=== PATIENT | female | born 1935 | race Caucasian/White ===

== ENCOUNTER → 2020-08-25 09:06 | Outpatient (BNVA) | payer MEDICARE, OTHER, SELFPAY | PROVIDERS: Family Provider Internal Medicine; PCP Internal Medicine; Referring Provider Internal Medicine; Visit Provider Orthopaedic Surgery | DX: M25.562 Pain in left knee (principal); M25.561 Pain in right knee | CPT/HCPCS: 73560; 73565 ==

== ENCOUNTER 2021-08-18 03:08 | Observation (INO) | payer MEDICARE, OTHER, SELFPAY ==
[2021-08-18] VITALS (38 sets, daily range): BP systolic 103–204; BP diastolic 57–150; PULSE 57–120; RESP 14–35; TEMP 36.2–36.6; O2SAT 90–99; BMI 27.8
--- NOTE | 2021-08-18 03:19 | ED_ITS ---
HPI - Epistaxis General: Chief complaint: Epistaxis Stated complaint: Nose Bleed Time Seen by Provider: 08/18/21 03:09 Source: patient Mode of arrival: ambulatory Limitations: no limitations History of Present Illness: 86-year-old female has a history of high blood pressure also is on Eliquis due to A. fib. States she woke up an hour half ago with a nosebleed from her right nare states she has not been able to get it to stop bleeding. She is hypertensive here she does have active bleeding from the right nare states she has never had issues with nosebleeds in the past. Denies any worsening improving factors. Associated symptoms: Deny fever(s), headache(s) or vomiting Review of Systems Const: Denies: fever(s), chills, body aches or change in appetite Eyes: Denies: blurry vision or eye discomfort ENMT: Reports: epistaxis Card: Denies: chest pain Resp: Denies: dyspnea GI: Denies: abdominal pain, nausea, vomiting or diarrhea : Denies: dysuria Musc: Denies: neck pain or back pain Skin/Breast: Denies: rash Neuro: Denies: headache(s) Psych: Denies: depression Tristan/Lymph: Denies: easy bruising All/Imm: Denies: urticaria PFSH ED PFSH: Medical History Atrial fibrillation CHF (congestive heart failure) History of stroke HTN (hypertension) Hypercholesterolemia RLS (restless legs syndrome) Tricuspid valve regurgitation Surgical History H/O section S/P appendectomy S/P cholecystectomy S/P knee replacement 2016 S/P wrist surgery Family History Father Stroke Hypertension Heart disease Mother Sarcoidosis Hypertension Sister Hypertension Social History Smoking and tobacco status: never smoked History of recent travel: No Physical Exam Const: COMMON NORMALS: no acute distress, patient oriented x3 and healthy appearing HENMT: COMMON NORMALS: normocephalic and atraumatic HEAD & SCALP: normocephalic and atraumatic OTHER: Active bleeding from right nare Eye: COMMON NORMALS: Equal, round and reactive pupils present and EOMs intact bilaterally PUPIL: Yes Equal, round and reactive pupils present Neck/C-Spine: COMMON NORMALS: full ROM and supple Chest: COMMONS NORMALS: normal inspection of the chest and normal palpation of entire chest wall Resp: COMMON NORMALS: normal respiratory effort, No retractions, No use of accessory muscles and clear to auscultation bilaterally AUSCULTATION: clear to auscultation bilaterally Cardio: COMMON NORMALS: regular rate, regular rhythm and No murmurs present (Cardio) RATE: regular rate RHYTHM: regular rhythm GI: COMMON NORMALS: Normal to inspection, nondistended, normoactive bowel sounds present, Soft to palpation, non-tender and no masses PALPATION: Yes Soft to palpation Extremity: COMMON NORMALS: normal to inspection and full ROM Neuro: COMMON NORMALS: patient oriented x3, moves all extremities and no focal motor deficits Psych: COMMON NORMALS: mental status grossly normal, Normal thought process present and cooperative THOUGHT PROCESS: Normal thought process present Skin: COMMON NORMALS: no rashes or lesions noted and no wounds GENERAL SKIN EXAM: no rashes or lesions noted Course Vital Signs: Vital signs: Vital Signs Temperature 97.7 F 08/18/21 03:15 Pulse Rate 94 08/18/21 03:59 Respiratory Rate 16 08/18/21 03:59 Blood Pressure 116/76 08/18/21 03:59 Pulse Oximetry 93 08/18/21 03:59 MDM - Epistaxis Medical Decision Making Patient presents here with nosebleed. I had her blow out the clot placed Afrin and then a nose clamp and her bleeding is subsided is able to remove the clamp and observed here for another 15 minutes she still has no bleeding she is well- appearing here blood pressure is improved she is stable for discharge did give her instructions how to stop the bleed if it stopped starts again she is return if she has excess bleeding we will get her follow-up with ear nose and throat as well. Lab Data : 08/18/21 03:20 Laboratory Results WBC 4.2 10^3/uL (4.0-10.0) 08/18/21 03:20 RBC 4.47 10^6/uL (4.1-5.3) 08/18/21 03:20 Hgb 13.7 g/dL (11.5-15.3) 08/18/21 03:20 Hct 42.4 % (37.0-47.0) 08/18/21 03:20 MCV 94.9 fl (81-99) 08/18/21 03:20 MCH 30.6 pg (28.0-34.0) 08/18/21 03:20 MCHC 32.3 g/dL (30.0-36.0) 08/18/21 03:20 RDW 13.0 % (12.1-15.1) 08/18/21 03:20 Plt Count 114 10^3/cmm (130-400) L 08/18/21 03:20 MPV 10.9 fL (7.4-10.4) H 08/18/21 03:20 Neut % (Auto) 69.4 % 08/18/21 03:20 Lymph % (Auto) 18.2 % 08/18/21 03:20 [place] % (Auto) 8.6 % 08/18/21 03:20 Eos % (Auto) 3.1 % 08/18/21 03:20 Baso % (Auto) 0.5 % 08/18/21 03:20 Neut # (Auto) 2.90 10^3/uL (1.8-7.7) 08/18/21 03:20 Lymph # (Auto) 0.8 10^3/uL (0.8-4.8) 08/18/21 03:20 [place] # (Auto) 0.4 10^3/uL (0.2-0.9) 08/18/21 03:20 Eos # (Auto) 0.1 10^3/uL (0.0-0.8) 08/18/21 03:20 Baso # (Auto) 0.0 10^3/uL (0.0-0.1) 08/18/21 03:20 Nucleated RBC % (auto) 0 % 08/18/21 03:20 Nucleated RBCs # 0.0 /100WBC 08/18/21 03:20 PT 16.30 SECONDS (12.1-14.9) H 08/18/21 03:20 INR 1.28 (0.8-1.2) H 08/18/21 03:20 Discharge Plan Discharge Patient Disposition: Home Clinical Impression: Epistaxis Condition: Stable Prescriptions: No Action acetaminophen 500 mg capsule 500 mg PO Q6H PRN0RF alprazolam 0.25 mg tablet 0.25 mg PO DAILY 0RF aspirin [Adult Low Dose Aspirin] 81 mg tablet,delayed release (DR/EC) 81 mg PO DAILY 0RF ropinirole 0.5 mg tablet 0.5 mg PO TID 0RF furosemide 40 mg tablet 80 mg PO DAILY 0RF potassium chloride 20 mEq tablet extended release 20 meq PO BID 0RF metoprolol tartrate 50 mg tablet 50 mg PO BID 0RF imiquimod 5 % cream in packet 4 mm topical ONCE Qty: 24 1RF Rx Instructions: Apply thin film to right neck and left arm once daily M-F (off weekends) for 6 weeks glucosamine-chondroitin 900 mg tablet PO 0RF albuterol sulfate [ProAir HFA] 90 mcg/actuation HFA aerosol inhaler 2 puff inhalation Q6H PRN (Reason: shortness of breath or wheezing) Qty: 8.5 3RF Eliquis 2.5 mg tablet 2.5 mg PO BID 90 Days Qty: 180 4RF atorvastatin 10 mg tablet 10 mg PO DAILY 90 Days Qty: 90 3RF losartan 25 mg tablet 25 mg PO DAILY 90 Days Qty: 90 3RF Discharge Orders: Discharge ED (Routine); Ordered 08/18/21 Ordered By: Pennie Zayas Referrals: Hunter Calderon MD [Physician] - 1-3 days Reji Bradley DO [Primary Care Provider] - Discharge Diet: Advance as tolerated Discharge Activity: Resume usual activity Patient Instructions: Nosebleed (ED) Coding Level of Care Code ED Machine Clipper for Chg Fwd Exam Comprehensive
[2021-08-18] MEDS: labetalol 5 mg/mL SDV 20mL 10 MG IVP ×3 (03:21→05:11)
[2021-08-18] MEDS: oxymetazoline 0.05% Nasal Spray 15 mL 2 SPRAY NOSTRIL-B (03:23)
[2021-08-18 03:33] LABS: Basophils % 0.5 %; Eosinophils # 0.1 10^3/uL (0.0-0.8); Eosinophils % 3.1 %; Hematocrit 42.4 % (37.0-47.0); Hemoglobin 13.7 g/dL (11.5-15.3); Lymphocytes # 0.8 10^3/uL (0.8-4.8); Lymphocytes % 18.2 %; Mean Corpuscular HGB Conc 32.3 g/dL (30.0-36.0); Mean Corpuscular Hemoglobin 30.6 pg (28.0-34.0); Mean Corpuscular Volume 94.9 fl (81-99); Mean Platelet Volume 10.9 fL (7.4-10.4); Monocytes # 0.4 10^3/uL (0.2-0.9); Monocytes % 8.6 %; Neutrophils % 69.4 %; Nucleated Red Blood Cells % 0 %; Platelet Count 114 10^3/cmm (130-400); Red Blood Count 4.47 10^6/uL (4.1-5.3); White Blood Count 4.2 10^3/uL (4.0-10.0)
[2021-08-18 03:41] LABS: INR 1.28 (0.8-1.2)
--- NOTE | 2021-08-18 05:17 | ECG_ITS ---
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 Measurements Intervals [place] Rate: 129 P: HI: QRS: 81 QRSD: 97 T: 89 QT: 311 QTc: 456 Interpretive Statements ATRIAL FIBRILLATION WITH RAPID VENTRICULAR RESPONSE ST DEPRESSION, CONSIDER SUBENDOCARDIAL INJURY [0.1+ mV ST DEPRESSION] Compared to ECG 11/14/2018 06:10:22 ST (T wave) deviation now present Sinus rhythm no longer present Ventricular premature complex(es) no longer present Left ventricular hypertrophy no longer present Electronically Signed On 08-18-2021 17:43:44 POWER AND RECOVERY SUPERINTENDENT by Camille Bustos M.D. [id number]
[2021-08-18] MEDS: LORazepam 2 mg/mL INJ 1 mL 0.5 MG IVP (05:25)
[2021-08-18] MEDS: ropinirole 0.25 mg Tablet 0.5 MG PO ×3 (05:52→15:12)
[2021-08-18 06:10] LABS: Alanine Aminotransferase 10 U/L (0-33); Albumin Level 3.9 g/dL (3.5-5.2); Alkaline Phosphatase 140 IU/L (35-105); Anion Gap 14.3 (5-19); Aspartate Amino Transferase 15 U/L (0-32); Blood Urea Nitrogen 23 mg/dL (8-23); Carbon Dioxide 25 mmol/L (22-29); Chloride 105 mmol/L (98-107); Glucose 122 mg/dL (65-115); Osmolality Calculated 297 mOsm/kg (285-295); Potassium 3.3 mmol/L (3.5-5.1); Sodium 141 mmol/L (136-145); Total Bilirubin 0.8 mg/dL (0.15-1.2); Total Protein 6.9 g/dL (6.6-8.7)
--- NOTE | 2021-08-18 07:20 | PC.NURSE ---
HR: 71 o2: 92 RR: 13 BP: 161/116 TEMP:96.3
--- NOTE | 2021-08-18 07:46 | PC.NURSE ---
pt has underwear, night gown, byron. all other belongings sent home with patients daughter ari grossman
--- NOTE | 2021-08-18 08:21 | PM.HP ---
Providers/Chief Complaint Admitting Physician: Radha Gee MD Primary Care Provider: Reji Bradley DO Chief Complaint: Nose Bleed History of Present Illness Tereza Cruz is a 86 year old female who presented to the hospital with a nosebleed, occurring early this morning. She states she has not had any significant nosebleeds lately. She is on both Eliquis and aspirin. After coming into the emergency department, and receiving packing heart rate elevated consistent with atrial fibrillation with rapid ventricular rate. She has had atrial fibrillation in the past and I cannot delineate whether she has chronic atrial fibrillation or paroxysmal atrial fibrillation. Either way she was placed on Cardizem drip, under observation category in the [facility]. A Rhino Rocket was placed in her right nares after Afrin and pressure failed in the emergency department to control bleeding. ENT has been consulted. She reports that through this episode she never had any chest discomfort, shortness of breath. She has had some sinus pressure recently on the right. Review of Systems General: Reports: 10 or more systems reviewed and unremarkable except in HPI and below Const: Denies: fever(s) or chills Eyes: Denies: change in vision ENMT: Reports: epistaxis; Denies: throat pain Card: Denies: chest pain Resp: Denies: dyspnea GI: Denies: abdominal pain : Denies: flank pain Musc: Denies: neck pain Skin/Breast: Denies: rash Neuro: Denies: headache(s) Psych: Denies: anxiety Endo: Denies: polyuria Tristan/Lymph: Denies: easy bruising All/Imm: Reports: seasonal rhinorrhea Medications/Allergies Home Medications Medication Instructions Recorded Confirmed Last Taken Type acetaminophen 500 mg capsule 500 mg PO Q6H PRN 08/09/19 08/06/21 Unknown History alprazolam 0.25 mg tablet 0.25 mg PO DAILY 08/09/19 08/06/21 Unknown History aspirin 81 mg tablet,delayed 81 mg PO DAILY 08/09/19 08/06/21 Unknown History release (Adult Low Dose Aspirin) apixaban 2.5 mg tablet (Eliquis) 2.5 mg PO BID 90 Days #180 tab 09/25/20 08/06/21 Unknown Rx atorvastatin 10 mg tablet 10 mg PO DAILY 90 Days #90 tab 10/09/20 08/06/21 Unknown Rx losartan 25 mg tablet 25 mg PO DAILY 90 Days #90 tab 10/21/20 08/06/21 Unknown Rx albuterol sulfate 90 mcg/actuation 2 puff INHALATION Q6H PRN #8.5 g 02/05/21 08/06/21 Unknown Rx aerosol inhaler (ProAir HFA) antiarthritic combination no.2 900 mg PO 02/05/21 08/06/21 Unknown History mg tablet (glucosamine-chondroitin) ropinirole 0.5 mg tablet 0.5 mg PO TID tab 02/05/21 08/06/21 Unknown History imiquimod 5 % topical cream packet 4 mm TOPICAL ONCE #24 ea 07/07/21 08/06/21 Unknown Rx furosemide 40 mg tablet 80 mg PO DAILY tab 08/06/21 08/06/21 Unknown History metoprolol tartrate 50 mg tablet 50 mg PO BID tab 08/06/21 08/06/21 Unknown History potassium chloride 20 mEq 20 meq PO BID tab 08/06/21 08/06/21 Unknown History tablet,extended release cephalexin 500 mg capsule 500 mg PO TID 7 Days #21 cap 08/18/21 Unknown Rx Allergies Allergy/AdvReac Type Severity Reaction Status Date / Time codeine Allergy Unknown Unknown Verified 07/14/21 08:02 hydrocodone Allergy Unknown Unknown Verified 07/14/21 08:02 PFSH Acute PFSH: Medical History Atrial fibrillation CHF (congestive heart failure) History of stroke HTN (hypertension) Hypercholesterolemia RLS (restless legs syndrome) Tricuspid valve regurgitation Surgical History H/O section S/P appendectomy S/P cholecystectomy S/P knee replacement 2016 S/P wrist surgery Family History Father Stroke Hypertension Heart disease Mother Sarcoidosis Hypertension Sister Hypertension Social History Smoking and tobacco status: never smoked History of recent travel: No Vitals/I&O/Wt Last Vital Signs Temp 97.2 F L 08/18/21 07:22 Pulse 67 08/18/21 07:45 Resp 19 H 08/18/21 07:45 BP 151/80 08/18/21 07:45 Pulse Ox 97 08/18/21 07:45 08/17/21 08/18/21 08/18/21 22:59 06:59 14:59 Intake Total 12.417 / 12.417 Balance 12.417 / 12.417 Weight last 48 hrs Weight 68.946 kg Physical Exam Narrative: General exam is a white female, no apparent distress, with Rhino Rocket in right nares. HEENT: Atraumatic normocephalic. Pupils equally round. Oropharynx clear. Neck is supple no lymphadenopathy or thyromegaly Cardiovascular irregular, irregular without murmur Lungs clear no wheezing or crackles Abdomen is soft nontender positive bowel sounds. No obvious organomegaly exam is deferred Extremities no cyanosis clubbing or edema, cap refill brisk Skin no rash Neuro no focal deficits. Data : 08/18/21 03:20 08/18/21 05:47 Other Labs: EKG on admission demonstrated atrial fibrillation with rapid ventricular rate, 129, with nonspecific ST-T wave changes. INR 1.28 LFTs normal with exception of alk phos of 140 A&P Assessment and plan (1) Epistaxis: Chronically on Eliquis and aspirin. Rhino Rocket placed in the emergency department, right nares ENT consult pending Placed on Augmentin for prophylaxis Hold ASA Status: Acute (2) Atrial fibrillation with rapid ventricular response: On Metoprolol chronically. Currently on Cardizem drip. Wean off as tolerated. Resume Eliquis Status: Acute (3) History of stroke: Resume Eliquis considering patient's history of CVA related to AFib requiring TPA. Status: Acute (4) CHF (congestive heart failure): Complensated currently. Likely restart Lasix back tomorrow. Status: Acute Qualifiers: Heart failure type: diastolic Heart failure chronicity: chronic Qualified Code(s): I50.32 - Chronic diastolic (congestive) heart failure Plan Multiple other medical multiple other medical problems as outlined in past medical history Full code Eliquis will suffice for DVT prophylaxis Attestations Medical Necessity Statement*: Will need less than 2 will need less than 2 midnight stay for evaluation of atrial fibrillation with rapid ventricular rate and epistaxis. Coding Level of Care Code Acute Purchasing Manager for Carlitos Michaud Diagnoses Epistaxis R04.0 Atrial fibrillation with rapid ventricular response I48.91 History of stroke Z86.73 CHF (congestive heart failure) I50.32 Heart failure type: diastolic Heart failure chronicity: chronic
[2021-08-18 08:54] LABS: Magnesium 2.1 mg/dL (1.7-2.3); Thyroid Stimulating Hormone 4.68 uIU/mL (0.27-4.20)
[2021-08-18] MEDS: losartan 50 mg Tablet 25 MG PO ×2 (09:14→16:57)
[2021-08-18] MEDS: pantoprazole DR 40 mg Tablet PO (09:15)
[2021-08-18] MEDS: potassium chloride ER 20 mEq Tablet 40 MEQ PO (09:15)
[2021-08-18] MEDS: amoxicillin-clav 875-125 mg Tablet 1 TAB PO ×2 (09:16→17:00)
[2021-08-18] MEDS: apixaban 5 mg Tablet 2.5 MG PO ×2 (09:16→20:40)
[2021-08-18] MEDS: metoprolol tartrate 50 mg Tablet PO ×2 (09:16→20:40)
--- NOTE | 2021-08-18 09:21 | DCPLANNER ---
Addendum entered by Renetta Bland 08/27/21 14:50: Patient had a follow up appointment scheduled with ENT on 08.24.21 - patient did attend appointment. Addendum entered by Renetta Bland 08/20/21 19:45: Patient has a follow up appointment scheduled for Tuesday, August 18, 2021 at 4:[address] Calderon at [facility] ENT clinic. The ENT clinic will call patient with appointment information. Original Note: financial analysis manager had message to schedule a follow up appointment with ENT. financial analysis manager emailed patients information to Ann-Marie Lux and Kristin at [facility] General Surgery / ENT clinic. Patients information will be printed and reviewed.
[2021-08-18] MEDS: acetaminophen 325 mg Tablet 650 MG PO ×2 (10:32→16:32)
--- NOTE | 2021-08-18 16:50 | PM.CONSULT ---
Providers/Reason For Consult Consulting Physician/Specialty*: Hunter Calderon MD/otolaryngology Reason for Consult*: Right recurrent epistaxis Attending Physician: Rodney Cuevas MD Primary Care Provider: Reji Bradley DO History of Present Illness History of Present Illness Tereza Cruz is a 86 year old female who has required packing of her right nasal cavity in the emergency room due to persistent epistaxis early this morning. The patient is on Eliquis and this is caused her to have persistent bleeding once she started up. The patient is doing fine in the hospital being treated for her hypertension and I was asked to see the patient in consultation from an ENT standpoint. No further bleeding since the packing was placed. It is a right-sided Rhino Rocket. Review of Systems Narrative: Patient is currently complaining of pressure in the right side of her head as expected. With the Rhino Rocket in place that in itself will cause pressure and blocking the sinus ostia from aerating and draining secretions will also add to the fullness and pressure on the right side. It is likely to affect all of the sinuses. Patient does not have any active bleeding currently. Breathing easily through the left side of the nose as well as the mouth. Medications/Allergies Home Medications Medication Instructions Recorded Confirmed Last Taken Type alprazolam 0.25 mg tablet 0.25 mg PO QPM 08/09/19 08/18/21 Unknown History aspirin 81 mg tablet,delayed 81 mg PO BEDTIME 08/09/19 08/18/21 Unknown History release (Adult Low Dose Aspirin) apixaban 2.5 mg tablet (Eliquis) 2.5 mg PO BID 90 Days #180 tab 09/25/20 08/18/21 Unknown Rx atorvastatin 10 mg tablet 10 mg PO DAILY 90 Days #90 tab 10/09/20 08/18/21 Unknown Rx losartan 25 mg tablet 25 mg PO DAILY 90 Days #90 tab 10/21/20 08/18/21 Unknown Rx albuterol sulfate 90 mcg/actuation 2 puff INHALATION Q6H PRN #8.5 g 02/05/21 08/18/21 Unknown Rx aerosol inhaler (ProAir HFA) ropinirole 0.5 mg tablet 0.5 mg PO TID tab 02/05/21 08/18/21 Unknown History imiquimod 5 % topical cream packet 4 mm TOPICAL ONCE #24 ea 07/07/21 08/18/21 Unknown Rx furosemide 40 mg tablet 40 mg PO BID tab 08/06/21 08/18/21 Unknown History metoprolol tartrate 50 mg tablet See Rx Instructions .ROUTE 08/06/21 08/18/21 Unknown History .COMPLEX tab potassium chloride 20 mEq 20 meq PO BID tab 08/06/21 08/18/21 Unknown History tablet,extended release [id number] tablet 1 - 2 tab PO DAILY PRN 08/18/21 08/18/21 Unknown History Allergies Allergy/AdvReac Type Severity Reaction Status Date / Time codeine Allergy Unknown Unknown Verified 08/18/21 09:34 hydrocodone Allergy Unknown Unknown Verified 08/18/21 09:34 Current Medications Generic Name Dose Route Start Last Admin Trade Name Freq PRN Reason Stop Dose Admin Acetaminophen 650 mg 08/18/21 08:19 08/18/21 16:32 Acetaminophen 325 Mg Tablet PO 650 mg Q6H PRN Administration Mild/Mod Pain Or Temp >/= 101 Amoxicillin/Clavulanate Potassium 1 tab 08/18/21 09:00 08/18/21 09:16 Amoxicillin-Clav 875-125 Mg Tablet PO 1 tab BID COLBY Administration Protocol Apixaban 2.5 mg 08/18/21 09:00 08/18/21 09:16 Apixaban 5 Mg Tablet PO 2.5 mg BID@0900,2100 COLBY Administration Diltiazem HCl 125 mg/ Sodium 125 mls @ 10 mls/hr 08/18/21 05:30 08/18/21 10:30 Chloride IV Infused .[id number] COLBY Infusion 10 MG/HR Metoprolol Tartrate 50 mg 08/18/21 09:00 08/18/21 09:16 Metoprolol Tartrate 50 Mg Tablet PO 50 mg BID@0900,2100 COLBY Administration Pantoprazole Sodium 40 mg 08/18/21 09:00 08/18/21 09:[address] 40 Mg Tablet PO 40 mg DAILY COLBY Administration Ropinirole HCl 0.5 mg 08/18/21 09:00 08/18/21 15:12 Ropinirole 0.25 Mg Tablet PO 0.5 mg TID COLBY Administration PFSH Acute PFSH: Medical History Atrial fibrillation CHF (congestive heart failure) History of stroke HTN (hypertension) Hypercholesterolemia RLS (restless legs syndrome) Tricuspid valve regurgitation Surgical History H/O section S/P appendectomy S/P cholecystectomy S/P knee replacement 2016 S/P wrist surgery Family History Father Stroke Hypertension Heart disease Mother Sarcoidosis Hypertension Sister Hypertension Social History Smoking and tobacco status: never smoked History of recent travel: No Vitals/I&O/Wt Last Vital Signs Temp 97.2 F L 08/18/21 07:22 Pulse 69 08/18/21 15:16 Resp 14 08/18/21 15:16 BP 153/79 08/18/21 15:16 Pulse Ox 96 08/18/21 15:16 08/18/21 08/18/21 08/18/21 06:59 14:59 22:59 Intake Total 12.417 / 12.417 56.833 / 56.833 Balance 12.417 / 12.417 56.833 / 56.833 Weight last 48 hrs Weight 152 lb Physical Exam Narrative: The patient's nose was packed on the right side with a Rhino Rocket. Some old blood present on the anterior aspect. There is no bleeding from the nose or down the back of the throat. Patient talking normally. Breathing easily. Having typical pressure in the right side of the face caused by the packing. Patient's current hemoglobin is 13.7 with hematocrit of 42.4 and white count of 4200 all which is within normal limits. Platelets low at 114,000 as expected after the recurrent epistaxis. Data : 08/18/21 03:20 08/18/21 05:47 A&P Assessment and plan (1) Epistaxis: Assessment: Epistaxis from the right nasal cavity most likely the septum as reported from the emergency room. No further bleeding since the Rhino Rocket is in place. Pressure as expected from the packing causing fullness and pressure sensation in the sinuses on the right side. Patient is continued on aspirin and Eliquis due to her other medical problems including her atrial fibrillation. Status: Acute (2) Atrial fibrillation with rapid ventricular response: Status: Acute Plan Plan: My recommendation is for this patient to see me in the office as an outpatient on Tuesday, 24 August. At that point we will remove the Rhino Rocket and take care of any other problems in regards to her nose or bleeding that needs to be done. The patient should be maintained on prophylactic antibiotics through that period of time to prevent toxic shock syndrome or sinus infection. Coding Level of Care Code New Pt Acute Recreation Leader for Carlitos Michaud Patient Type New History Problem Focused Exam Problem Focused Medical Decision Making Straight Forward Diagnoses Epistaxis R04.0 Atrial fibrillation with rapid ventricular response I48.91
--- NOTE | 2021-08-18 16:51 | PC.NURSE ---
dr tobias notified of pts elevated bp. order recieved for losartan.
[2021-08-18] MEDS: hyDRALAzine 20 mg/mL INJ 1 mL 10 MG IVP ×2 (18:45→22:04)
[2021-08-18] MEDS: atorvastatin 40 mg Tablet 20 MG PO (20:40)
[2021-08-18] MEDS: ropinirole 1 mg Tablet 0.5 MG PO (20:40)
[2021-08-18] MEDS: LORazepam 0.5 mg Tablet 0.25 MG PO (20:41)
[2021-08-19] VITALS (14 sets, daily range): BP systolic 133–174; BP diastolic 84–104; PULSE 86–108; RESP 16–24; TEMP 36.6; O2SAT 93–98
[2021-08-19] MEDS: hyDRALAzine 20 mg/mL INJ 1 mL 10 MG IVP (03:59)
[2021-08-19 04:34] LABS: Basophils % 0.3 %; Eosinophils % 0.5 %; Hematocrit 38.8 % (37.0-47.0); Hemoglobin 12.6 g/dL (11.5-15.3); Lymphocytes # 0.6 10^3/uL (0.8-4.8); Lymphocytes % 10.5 %; Mean Corpuscular HGB Conc 32.5 g/dL (30.0-36.0); Mean Corpuscular Hemoglobin 30.7 pg (28.0-34.0); Mean Corpuscular Volume 94.6 fl (81-99); Mean Platelet Volume 11.3 fL (7.4-10.4); Monocytes # 0.6 10^3/uL (0.2-0.9); Monocytes % 9.3 %; Neutrophils # 4.71 10^3/uL (1.8-7.7); Neutrophils % 78.7 %; Nucleated Red Blood Cells % 0 %; Platelet Count 110 10^3/cmm (130-400); Red Cell Distribution Width 13.3 % (12.1-15.1)
[2021-08-19 04:52] LABS: Anion Gap 13.8 (5-19); Blood Urea Nitrogen 17 mg/dL (8-23); Calcium 10.7 mg/dL (8.5-10.5); Carbon Dioxide 25 mmol/L (22-29); Chloride 104 mmol/L (98-107); Glucose 103 mg/dL (65-115); Magnesium 2.3 mg/dL (1.7-2.3); Osmolality Calculated 290 mOsm/kg (285-295); Potassium 3.8 mmol/L (3.5-5.1); Sodium 139 mmol/L (136-145)
[2021-08-19 04:53] LABS: Creatinine Clr Calc Pharmacy 38.1054
--- NOTE | 2021-08-19 07:03 | PC.NURSE ---
recieved report from welder 2nd shift. reviewed plan of care. assumed care of patient. no needs identified at this time.
[2021-08-19] MEDS: metoprolol tartrate 50 mg Tablet PO (08:02)
[2021-08-19] MEDS: amoxicillin-clav 875-125 mg Tablet 1 TAB PO (08:02)
[2021-08-19] MEDS: pantoprazole DR 40 mg Tablet PO (08:02)
[2021-08-19] MEDS: ropinirole 1 mg Tablet 0.5 MG PO (08:02)
[2021-08-19] MEDS: losartan 50 mg Tablet PO (08:03)
[2021-08-19] MEDS: apixaban 5 mg Tablet 2.5 MG PO (08:03)
[2021-08-19] MEDS: acetaminophen 325 mg Tablet 650 MG PO (08:03)
[2021-08-19] MEDS: metoprolol tartrate 25 mg Tablet PO (10:02)
--- NOTE | 2021-08-19 10:32 | PC.CHAP ---
Pastoral Care Encounter/Spiritual Assessment Type of Contact [] Declined elevator installer visit [] Patient/Family/Request visit [] Outpatient visit [] Follow-up visit [] Physician referral [] Code/Alert [x] Routine visit [] Staff referral [] Actively dying [] Patient sleeping [x] Family support [] [] Out of room [] Palliative care [] [] Receiving care in room [] Pre-surgical visit [] Trauma [] Long length of stay [] ICU visit [] Other: Relational/Emotional Strength [] Patient feels connected with others/family/visitors/staff [] Distress [] Loneliness/isolation [] Abandonment Spirituality of Patient [] Person of Vivian [] Attends Confucianism of their Vivian [] Believes in Prayer [] Reads Bible or Anabaptism materials [] There are Spiritual issues to be addressed Human Resources Executive Assistant Interventions [x] Prayer [x] Active listening [x] Non-anxious presence [x] Spiritual/emotional support [] Crisis/trauma care [] Spiritual counseling [] Bereavement support [] Provided bereavement packet [] Provided Bible/devotional materials [] Provided toy/stuffed animal, coloring book to patient or family member [] Provided Communion [] Anointing/Pansey [] Salvation [x] Completed spiritual assessment [] Other: Impact on Illness or Injury [] Angry [] Fearful [] Anxious [] Often cries [] Exhaustion [] Unable to work [] Unable to attend mu-ism [] Unable to walk/stand [] Unable to read [] Unable to drive [] Unable to eat/drink [] Unable to sleep [] Unable to be with family [] Patient intubated [] Other: Summary nose has stopped bleeding... however BP and heart rate are high,,,, Time spent with patient 10 min
--- NOTE | 2021-08-19 11:19 | PM.DCS ---
Discharge Providers Date of Admission: 08/18/21 05:29 Date of Discharge: August 19, 2021 Attending Provider at Admission: Radha Gee MD Attending Provider at Discharge: Rodney Cuevas MD Primary Care Provider: Reji Bradley DO Diagnoses at Discharge Discharge Diagnosis (1) Epistaxis: Status: Acute (2) Atrial fibrillation with rapid ventricular response: Status: Acute Reason for Visit Reason for Visit: Nose Bleed Hospital Course Hospital Course Tereza presented to the hospital with a nosebleed. After initial treatment was not effective she had a Rhino Rocket in her right nose. She then developed atrial fibrillation with rapid ventricular rate, requiring a Cardizem drip. This was eventually weaned off on CSU, and adjustments of her antihypertensive was made to control heart rate as well as blood pressure with losartan increasing to 50 mg and metoprolol increasing to 75 twice a day. She had no bleeding overnight. ENT saw her and would follow her up in clinic early next week. She will discharge today on Augmentin, with adjustments to her metoprolol and losartan as above. At time of discharge her heart rate was 80, atrial fibrillation, well controlled. She was informed to return for any recurrent nosebleeding. She was continued on her Eliquis and aspirin, secondary to her significant history of heart disease and CVA in the past. Physical Exam Narrative: General exam no distress Neck is supple Cardiovascular irregular irregular Lungs clear Abdomen is soft, positive bowel sounds Extremities no cyanosis clubbing or edema Discharge Data Studies Completed and Pending Laboratory Results WBC 6.0 10^3/uL (4.0-10.0) 08/19/21 04:02 RBC 4.10 10^6/uL (4.1-5.3) 08/19/21 04:02 Hgb 12.6 g/dL (11.5-15.3) 08/19/21 04:02 Hct 38.8 % (37.0-47.0) 08/19/21 04:02 MCV 94.6 fl (81-99) 08/19/21 04:02 MCH 30.7 pg (28.0-34.0) 08/19/21 04:02 MCHC 32.5 g/dL (30.0-36.0) 08/19/21 04:02 RDW 13.3 % (12.1-15.1) 08/19/21 04:02 Plt Count 110 10^3/cmm (130-400) L 08/19/21 04:02 MPV 11.3 fL (7.4-10.4) H 08/19/21 04:02 Neut % (Auto) 78.7 % 08/19/21 04:02 Lymph % (Auto) 10.5 % 08/19/21 04:02 [place] % (Auto) 9.3 % 08/19/21 04:02 Eos % (Auto) 0.5 % 08/19/21 04:02 Baso % (Auto) 0.3 % 08/19/21 04:02 Neut # (Auto) 4.71 10^3/uL (1.8-7.7) 08/19/21 04:02 Lymph # (Auto) 0.6 10^3/uL (0.8-4.8) L 08/19/21 04:02 [place] # (Auto) 0.6 10^3/uL (0.2-0.9) 08/19/21 04:02 Eos # (Auto) 0.0 10^3/uL (0.0-0.8) 08/19/21 04:02 Baso # (Auto) 0.0 10^3/uL (0.0-0.1) 08/19/21 04:02 Nucleated RBC % (auto) 0 % 08/19/21 04:02 Nucleated RBCs # 0.0 /100WBC 08/19/21 04:02 PT 16.30 SECONDS (12.1-14.9) H 08/18/21 03:20 INR 1.28 (0.8-1.2) H 08/18/21 03:20 Sodium 139 mmol/L (136-145) 08/19/21 04:02 Potassium 3.8 mmol/L (3.5-5.1) 08/19/21 04:02 Chloride 104 mmol/L (98-107) 08/19/21 04:02 Carbon Dioxide 25 mmol/L (22-29) 08/19/21 04:02 Anion Gap 13.8 (5-19) 08/19/21 04:02 BUN 17 mg/dL (8-23) 08/19/21 04:02 Creatinine 1.0 mg/dL (0.5-0.9) H 08/19/21 04:02 GFR Calculation Not Reportable 08/19/21 04:02 Glucose 103 mg/dL (65-115) 08/19/21 04:02 Calculated Osmolality 290 mOsm/kg (285-295) 08/19/21 04:02 Calcium 10.7 mg/dL (8.5-10.5) H 08/19/21 04:02 Magnesium 2.3 mg/dL (1.7-2.3) 08/19/21 04:02 Total Bilirubin 0.8 mg/dL (0.15-1.2) 08/18/21 05:47 AST 15 U/L (0-32) 08/18/21 05:47 ALT 10 U/L (0-33) 08/18/21 05:47 Alkaline Phosphatase 140 IU/L (35-105) H 08/18/21 05:47 Total Protein 6.9 g/dL (6.6-8.7) 08/18/21 05:47 Albumin 3.9 g/dL (3.5-5.2) 08/18/21 05:47 Globulin 3.0 g/dL (1.3-4.6) 08/18/21 05:47 TSH 4.68 uIU/mL (0.27-4.20) H 08/18/21 05:47 Vitals Last Vital Signs Temp 97.9 F 08/19/21 03:55 Pulse 86 08/19/21 10:00 Resp 16 08/19/21 08:17 BP 148/101 08/19/21 10:00 Pulse Ox 98 08/19/21 10:00 Discharge Plan Discharge Patient Disposition: Home Condition: Stable Prescriptions: New losartan 50 mg Tablet 50 mg PO DAILY Qty: 30 0RF metoprolol tartrate 50 mg Tablet 75 mg PO BID@0900,2100 Qty: 90 0RF fluticasone propionate 50 mcg/actuation [place],Suspension 2 spray nasal DAILY Qty: 1 0RF amoxicillin-pot clavulanate 875-125 mg Tablet 1 tab PO BID Qty: 14 0RF Continued alprazolam 0.25 mg tablet 0.25 mg PO QPM 0RF aspirin [Adult Low Dose Aspirin] 81 mg tablet,delayed release (DR/EC) 81 mg PO BEDTIME 0RF ropinirole 0.5 mg tablet 0.5 mg PO TID 0RF furosemide 40 mg tablet 40 mg PO BID 0RF potassium chloride 20 mEq tablet extended release 20 meq PO BID 0RF imiquimod 5 % cream in packet 4 mm topical ONCE Qty: 24 1RF Rx Instructions: Apply thin film to right neck and left arm once daily M-F (off weekends) for 6 weeks albuterol sulfate [ProAir HFA] 90 mcg/actuation HFA aerosol inhaler 2 puff inhalation Q6H PRN (Reason: shortness of breath or wheezing) Qty: 8.5 3RF Eliquis 2.5 mg tablet 2.5 mg PO BID 90 Days Qty: 180 4RF atorvastatin 10 mg tablet 10 mg PO DAILY 90 Days Qty: 90 3RF [id number] Tablet 1 - 2 tab PO DAILY PRN (Reason: Allergy Symptoms) 0RF Discontinued metoprolol tartrate 50 mg tablet See Rx Instructions .ROUTE .COMPLEX 0RF Rx Instructions: 75mg po qam and 50mg po qpm losartan 25 mg tablet 25 mg PO DAILY 90 Days Qty: 90 3RF Discharge Orders: Discharge Order (Routine); Ordered 08/19/21 Ordered By: Rodney Cuevas Referrals: Hunter Calderon MD [Physician] - 1-3 days Reji Bradley DO [Primary Care Provider] - 4-7 days Discharge Diet: Advance as tolerated Discharge Activity: Resume usual activity Patient Instructions: Nosebleed (ED), Opioid Safety Activity Restrictions/Additional Instructions: Take all medicine as prescribed. Follow-up as directed. Return for any bleeding. 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 Discharge Attestations Time Spent in Discharge Care*: greater than 30 min Quality Metrics Clinical Quality Measures [ No reported AMI, CVA or VTE this stay] Coding Level of Care Code Acute Chg FW DC note Diagnoses Epistaxis R04.0 Atrial fibrillation with rapid ventricular response I48.91
[2021-08-19] MEDS: fluticasone nasal spray 16gm Btl 2 SPRAY NASAL (11:49)
--- NOTE | 2021-08-19 12:59 | PC.NURSE ---
discharge instructions explained to patient and daughter who is poa. Reviewed medication changes and pollow up instructions. piv dc'd, pt wheeled out to private vehicle. No further questions from patient or daughter.
== END 2021-08-19 12:15 | disposition home or self-care (01) ==
LOC: ER 05:33 → CSU 05:44
PROVIDERS: Admitting Provider Student in an Organized Health Care Education/Training Program; Emergency Provider Emergency Medicine; Family Provider Internal Medicine; PCP Internal Medicine; Visit Provider Internal Medicine
DX: R04.0 Epistaxis (principal); I48.91 Unspecified atrial fibrillation; Z86.73 Personal history of transient ischemic attack (TIA), and cerebral infarction without residual deficits; I11.0 Hypertensive heart disease with heart failure; I50.32 Chronic diastolic (congestive) heart failure; Z79.01 Long term (current) use of anticoagulants; Z79.82 Long term (current) use of aspirin; E78.00 Pure hypercholesterolemia, unspecified; Z82.49 Family history of ischemic heart disease and other diseases of the circulatory system; Z82.3 Family history of stroke
CPT/HCPCS: 30901; 36415; 80048; 80053; 83735; 84443; 85025; 85610; 93005; 96374; 96375; 96376; 99285; G0378; J0360; J2060; J3490

== ENCOUNTER → 2021-10-14 08:07 | Outpatient (BNVA) | payer MEDICARE, OTHER, SELFPAY | PROVIDERS: Family Provider Internal Medicine; PCP Internal Medicine; Visit Provider Orthopaedic Surgery | DX: M17.11 Unilateral primary osteoarthritis, right knee (principal); Z71.89 Other specified counseling | CPT/HCPCS: 20610; J0702; J3490 ==

== ENCOUNTER → 2022-01-19 10:06 | Outpatient (BNVA) | payer MEDICARE, OTHER, SELFPAY | PROVIDERS: Family Provider Internal Medicine; PCP Internal Medicine; Visit Provider Orthopaedic Surgery | DX: M17.11 Unilateral primary osteoarthritis, right knee (principal) | CPT/HCPCS: 20610; 99024 ==

== ENCOUNTER → 2022-04-21 13:06 | Outpatient (BNVA) | payer MEDICARE, OTHER, SELFPAY | PROVIDERS: Family Provider Internal Medicine; PCP Internal Medicine; Visit Provider Nurse Practitioner Family | DX: M17.11 Unilateral primary osteoarthritis, right knee (principal) | CPT/HCPCS: 20610; 99213; J1100; J3301; J3490 ==

== ENCOUNTER → 2022-07-23 10:31 | Outpatient (BNVA) | payer MEDICARE, OTHER, SELFPAY | PROVIDERS: Family Provider Internal Medicine; PCP Internal Medicine; Visit Provider Nurse Practitioner Family | DX: M17.11 Unilateral primary osteoarthritis, right knee (principal) | CPT/HCPCS: 20610; 99213 ==

== ENCOUNTER 2022-08-10 08:28 | Emergency (ER) | payer MEDICARE, OTHER, SELFPAY ==
[2022-08-10] VITALS (14 sets, daily range): BP systolic 147–183; BP diastolic 86–112; PULSE 74–84; RESP 18–26; TEMP 36.4; O2SAT 93–98; BMI 26.7
--- NOTE | 2022-08-10 08:41 | XRR_ITS ---
PROCEDURE INFORMATION: Exam: XR Chest Exam date and time: 08/10/2022 8:54 AM Age: 87 years old Clinical indication: Cough and dyspnea; Additional info: Dyspnea/cough TECHNIQUE: Imaging protocol: Radiologic exam of the chest. Views: 1 view. COMPARISON: CR XR chest 2V* [id number] 04/16/2019 1:41 PM FINDINGS: Lungs: There is no consolidation. Pleural spaces: There is no pleural effusion or pneumothorax. Heart/Mediastinum: There is a 4.2 cm calcification in the right upper mediastinum, stable since 2019. There is moderate enlargement of the cardiac silhouette. Diaphragm: There is marked asymmetric elevation of the right hemidiaphragm. Bones/joints: Bones are unremarkable. XR/XR chest 1V portable [id number] IMPRESSION: 1. No acute findings. 2. Stable marked asymmetric elevation of the right hemidiaphragm since 2019. 3. 4.2 cm calcified mass in the right upper mediastinum. Probable calcified lymph node, also stable since 04/16/2019. 4. Stable cardiac enlargement.
--- NOTE | 2022-08-10 09:08 | ECG_ITS ---
[facility] Test Date: 2022-08-10 Pat Name: Tereza Cruz Department: Room: Gender: Female Faculty Neuropsychologist: : 1935 Requested By: Clarence Toth Order Number: [id number] Neno MD: Albert Bean M.D. Measurements Intervals [place] Rate: 81 P: 0 NV: 0 QRS: 61 QRSD: 90 T: 33 QT: 402 QTc: 467 Interpretive Statements ATRIAL FIBRILLATION Compared to ECG 08/18/2021 05:20:56 ST (T wave) deviation no longer present Electronically Signed On 08-10-2022 11:44:20 GASOLINE ENGINE INSPECTOR by Albert Bean M.D. [id number]
--- NOTE | 2022-08-10 09:30 | W.ED.SOB ---
HPI - SOB/Dyspnea General: Chief Complaint: Shortness of Breath/Dyspnea Stated Complaint: fluid retention Time Seen by Provider: 08/10/22 08:40 Source: patient Mode of arrival: EMS History of Present Illness: HPI Narrative: 87-year-old female presents emergency room complaining of fluid retention. She has a history of atrial fibrillation and congestive heart failure. Over the last 2 weeks she has noticed increased swelling that is particularly worse in the last 2 days. She said increasing orthopnea and leg swelling leg swelling does get better at night when she sleeps in a recliner with her legs up. She did take an extra dose of Lasix yesterday with no significant improvement. MD elicited complaint: shortness of breath and cough Onset (ago): day(s) Context: recent illness Timing: constant Severity: moderate Exacerbating factors: exertion and coughing Relieving factors: oxygen and rest Known history of: COPD Associated symptoms: Reports chest congestion, chest pain, cough and orthopnea; Deny abdominal pain, diaphoresis, dizziness, extremity pain, fever(s), hemoptysis, lightheadedness, myalgias, nausea, palpitations, paresthesias, polydipsia, polyuria, rash, sense of impending doom, syncope or vomiting Treatment prior to arrival: none Review of Systems Const: Denies: fever(s), chills, fatigue, malaise or diaphoresis ENMT: Denies: throat pain, ear or mastoid pain, nasal discharge or nasal congestion Card: Reports: chest pain, edema, swelling of feet/ankles, dyspnea on exertion and orthopnea; Denies: palpitations, irregular heart rhythm, lightheadedness or syncope Resp: Reports: dyspnea, non-productive cough and chest congestion; Denies: productive cough or hemoptysis GI: Denies: abdominal pain, nausea or vomiting : Denies: flank pain, difficulty voiding, dysuria, urinary frequency or urinary urgency Musc: Denies: extremity pain Skin/Breast: Denies: rash or pruritus Neuro: Denies: dizziness Endo: Denies: polyuria or polydipsia PFSH ED PFSH: Medical History Atrial fibrillation CHF (congestive heart failure) History of stroke HTN (hypertension) Hypercholesterolemia RLS (restless legs syndrome) Tricuspid valve regurgitation Surgical History H/O section S/P appendectomy S/P cholecystectomy S/P knee replacement 2016 S/P wrist surgery Family History Father Stroke Hypertension Heart disease Mother Sarcoidosis Hypertension Sister Hypertension Social History Smoking and tobacco status: never smoked History of recent travel: No Physical Exam Const: GENERAL APPEARANCE: cooperative and comfortable ORIENTATION/CONSCIOUSNESS: Yes awake, Yes oriented to person, Yes oriented to place and Yes oriented to time HENMT: COMMON NORMALS: normocephalic, atraumatic and hearing grossly normal bilaterally HEAD & SCALP: normocephalic and atraumatic Resp: COMMON NORMALS: normal respiratory effort, No retractions and No use of accessory muscles AUSCULTATION: crackles Cardio: COMMON NORMALS: regular rate, regular rhythm and No murmurs present (Cardio) RATE: regular rate RHYTHM: regular rhythm GI: COMMON NORMALS: Soft to palpation and No hepatosplenomegaly present AUSCULTATION: Yes normoactive bowel sounds PALPATION: Yes Soft to palpation, No Tenderness to palpation present (GI), No Guarding due to palpation present (GI) and Yes No hepatosplenomegaly present Extremity: COMMON NORMALS: normal to inspection, capillary refill normal, no clubbing, cyanosis or edema, no calf tenderness and no pedal edema Neuro: SENSORIUM/ORIENTATION: Yes oriented to person, Yes oriented to place and Yes oriented to time Skin: COMMON NORMALS: no rashes or lesions noted GENERAL SKIN EXAM: no rashes or lesions noted Course Vital Signs: Vital signs: Vital Signs Temperature 97.6 F 08/10/22 08:40 Pulse Rate 78 08/10/22 11:45 Respiratory Rate 21 H 08/10/22 11:45 Blood Pressure 183/112 08/10/22 09:45 Pulse Oximetry 97 08/10/22 11:45 Oxygen Delivery Me thod 08/10/22 09:18 MDM - SOB/Dyspnea Medical Decision Making Improved with diuresis. We will increase her Lasix to 80 mg twice daily for 3 days also add potassium. Follow-up with her primary care doctor in 3 days. Return if is worsening problems. She is improved after diuresis here in the emergency room. Medical Records I reviewed the patient's medical records. Lab Data I reviewed the patient's lab results. 08/10/22 09:24 08/10/22 09:24 Labs/Radiology: Radiology Impressions Chest X-Ray 08/10/22 08:41 IMPRESSION: 1. No acute findings. 2. Stable marked asymmetric elevation of the right hemidiaphragm since 2019. 3. 4.2 cm calcified mass in the right upper mediastinum. Probable calcified lymph node, also stable since 04/16/2019. 4. Stable cardiac enlargement. Laboratory Results WBC 3.4 10^3/uL (4.0-10.0) L 08/10/22 09:24 RBC 3.62 10^6/uL (4.1-5.3) L 08/10/22 09:24 Hgb 11.6 g/dL (11.5-15.3) 08/10/22 09:24 Hct 36.5 % (37.0-47.0) L 08/10/22 09:24 MCV 100.8 fl (81-99) H 08/10/22 09:24 MCH 32.0 pg (28.0-34.0) 08/10/22 09:24 MCHC 31.8 g/dL (30.0-36.0) 08/10/22 09:24 RDW 14.1 % (12.1-15.1) 08/10/22 09:24 Plt Count 84 10^3/cmm (130-400) L 08/10/22 09:24 MPV 10.4 fL (7.4-10.4) 08/10/22 09:24 Neut % (Auto) 68.6 % 08/10/22 09:24 Lymph % (Auto) 16.6 % 08/10/22 09:24 [place] % (Auto) 12.1 % 08/10/22 09:24 Eos % (Auto) 1.8 % 08/10/22 09:24 Baso % (Auto) 0.6 % 08/10/22 09:24 Neut # (Auto) 2.32 10^3/uL (1.8-7.7) 08/10/22 09:24 Lymph # (Auto) 0.6 10^3/uL (0.8-4.8) L 08/10/22 09:24 [place] # (Auto) 0.4 10^3/uL (0.2-0.9) 08/10/22 09:24 Eos # (Auto) 0.1 10^3/uL (0.0-0.8) 08/10/22 09:24 Baso # (Auto) 0.0 10^3/uL (0.0-0.1) 08/10/22 09:24 Nucleated RBC % (auto) 0 % 08/10/22 09:24 Nucleated RBCs # 0.0 /100WBC 08/10/22 09:24 Sodium 142 mmol/L (136-145) 08/10/22 09:24 Potassium 3.2 mmol/L (3.5-5.1) L 08/10/22 09:24 Chloride 103 mmol/L (98-107) 08/10/22 09:24 Carbon Dioxide 29 mmol/L (22-29) 08/10/22 09:24 Anion Gap 13.2 (5-19) 08/10/22 09:24 BUN 17 mg/dL (8-23) 08/10/22 09:24 Creatinine 1.1 mg/dL (0.5-0.9) H 08/10/22 09:24 GFR Calculation Not Reportable 08/10/22 09:24 Glucose 97 mg/dL (65-115) 08/10/22 09:24 Calculated Osmolality 295 mOsm/kg (285-295) 08/10/22 09:24 Calcium 9.6 mg/dL (8.5-10.5) 08/10/22 09:24 Troponin T Baseline 13 ng/L (0-10) H 08/10/22 09:24 Troponin T 120 Minute 15.02 ng/L (0-10) H 08/10/22 11:07 Delta Troponin T 2.02 ABS# (0-10) 08/10/22 11:07 NT-Pro-B Natriuret Pep 3609 pg/mL (0-450) H 08/10/22 09:24 Discharge Plan Discharge Patient Disposition: Home Clinical Impression: CHF (congestive heart failure) Condition: Stable Prescriptions: Changed furosemide 40 mg tablet 80 mg PO BID Qty: 60 0RF potassium chloride 20 mEq tablet extended release 30 meq PO TID Qty: 90 0RF Rx Instructions: MUST make appt with new provider for further refills No Action alprazolam 0.25 mg tablet 0.25 mg PO QPM aspirin [Adult Low Dose Aspirin] 81 mg tablet,delayed release (DR/EC) 81 mg PO BEDTIME ropinirole 0.5 mg tablet 0.5 mg PO TID imiquimod 5 % cream in packet 4 mm topical ONCE Qty: 24 1RF Rx Instructions: Apply thin film to right neck and left arm once daily M- (off weekends) for 6 weeks losartan 50 mg tablet 25 mg PO QPM albuterol sulfate [ProAir HFA] 90 mcg/actuation HFA aerosol inhaler 2 puff inhalation Q6H PRN (Reason: shortness of breath or wheezing) Qty: 8.5 3RF Eliquis 2.5 mg tablet 2.5 mg PO BID 90 Days Qty: 180 4RF atorvastatin 10 mg tablet 10 mg PO DAILY 90 Days Qty: 90 3RF Tylenol Ex Str Rapid Release 500 mg Tablet 500 mg PO Q6H PRN (Reason: Pain) Mylanta 200-200-20 mg/5 mL Suspension 15 ml PO QID PRN (Reason: Indigestion) Rx Instructions: administer between meals and at bedtime Coricidin 2-325 mg Tablet 1 tab PO Q6H PRN (Reason: Congestion) xlpngje-lndx-nqinc-oreg-capryl 100 mg-150 mg- 50 mg-150 mg Capsule 1 cap PO DAILY Hyaluronic 150 150 mg PO DAILY metoprolol tartrate 50 mg tablet See Rx Instructions .ROUTE .COMPLEX Rx Instructions: one and a half tablets in the am and 1 tablet in the pm Discharge Orders: Discharge ED (Routine); Ordered 08/10/22 Ordered By: Clarence Cisse Referrals: Damion Reynoso MD [Physician] - (1:30 PM, 08/13/2022) Reji Bradley DO [Primary Care Provider] - Discharge Diet: Usual diet and Cardiac Discharge Activity: Increase activity as tolerated Patient Instructions: Opioid Safety, Pain Management Activity Restrictions/Additional Instructions: You are seen today for exacerbation of your congestive heart failure. Recommend increasing your Lasix for the next 3 days to 80 mg twice daily and increase your potassium supplement to 30 mEq 3 times daily. You should see Dr. Morgan at his office at 130 on August 13. Coding Level of Care Code ED Senior Research Associate for Carlitos Michaud
[2022-08-10 09:32] LABS: Basophils % 0.6 %; Eosinophils # 0.1 10^3/uL (0.0-0.8); Eosinophils % 1.8 %; Hematocrit 36.5 % (37.0-47.0); Hemoglobin 11.6 g/dL (11.5-15.3); Lymphocytes # 0.6 10^3/uL (0.8-4.8); Lymphocytes % 16.6 %; Mean Corpuscular HGB Conc 31.8 g/dL (30.0-36.0); Mean Corpuscular Volume 100.8 fl (81-99); Mean Platelet Volume 10.4 fL (7.4-10.4); Monocytes # 0.4 10^3/uL (0.2-0.9); Monocytes % 12.1 %; Neutrophils # 2.32 10^3/uL (1.8-7.7); Neutrophils % 68.6 %; Nucleated Red Blood Cells % 0 %; Platelet Count 84 10^3/cmm (130-400); Red Blood Count 3.62 10^6/uL (4.1-5.3); Red Cell Distribution Width 14.1 % (12.1-15.1); White Blood Count 3.4 10^3/uL (4.0-10.0)
[2022-08-10] MEDS: FUROsemide 10 mg/mL SDV 10mL 60 MG IVP (09:48)
[2022-08-10 09:59] LABS: Troponin(5th) Baseline 13 ng/L (0-10)
[2022-08-10 10:06] LABS: Anion Gap 13.2 (5-19); Blood Urea Nitrogen 17 mg/dL (8-23); Calcium 9.6 mg/dL (8.5-10.5); Carbon Dioxide 29 mmol/L (22-29); Chloride 103 mmol/L (98-107); Glucose 97 mg/dL (65-115); NT Pro B Type Natriuretic Pept 3609 pg/mL (0-450); Osmolality Calculated 295 mOsm/kg (285-295); Potassium 3.2 mmol/L (3.5-5.1); Sodium 142 mmol/L (136-145)
--- NOTE | 2022-08-10 10:09 | PC.NURSE ---
pt declines having BP recheck, states that the tightness of the cuff is whats making it elevate and it is going to give her a panic attack. will try to recheck BP at time of DC
[2022-08-10 11:38] LABS: Troponin 5 2HR 15.02 ng/L (0-10); Troponin 5 2HR Delta 2.02 ABS# (0-10)
--- NOTE | 2022-08-10 11:48 | DCPLANNER ---
geothermal production manager was asked to schedule a follow up appointment for patient with primary care. Patients primary care physician is Dr. Bradley, at [facility] [place]. geothermal production manager called [facility] [place], Dr. Bradley is not in the office on Tuesday, an appointment was scheduled for Friday, August 13, 2021 at 1:[address] Reynoso. geothermal production manager informed physician of the appointment. The appointment information will be added to patients discharge paperwork.
== END 2022-08-10 12:04 | disposition home or self-care (01) ==
PROVIDERS: Emergency Provider Family Medicine; PCP Internal Medicine
DX: I11.0 Hypertensive heart disease with heart failure (principal); I50.9 Heart failure, unspecified; Z79.82 Long term (current) use of aspirin; Z79.01 Long term (current) use of anticoagulants; Z86.73 Personal history of transient ischemic attack (TIA), and cerebral infarction without residual deficits
CPT/HCPCS: 36415; 71045; 80048; 83880; 84484; 85025; 93005; 96374; 99285; J1940

== ENCOUNTER → 2023-02-15 10:48 | Outpatient (BNVA) | payer MEDICARE, OTHER, SELFPAY | PROVIDERS: PCP Internal Medicine; Visit Provider Nurse Practitioner Family | DX: L57.8 Other skin changes due to chronic exposure to nonionizing radiation (principal); L81.4 Other melanin hyperpigmentation; L57.0 Actinic keratosis; L82.1 Other seborrheic keratosis | CPT/HCPCS: 17000; 17003; 99213 ==

== ENCOUNTER 2023-04-12 10:37 | Emergency (ER) | payer MEDICARE, OTHER, SELFPAY ==
[2023-04-12 10:39] VITALS: BP 144/79; PULSE 87; RESP 22; O2SAT 98; BMI 26.7
[2023-04-12 11:02] LABS: Basophils % 0.4 %; Eosinophils # 0.1 10^3/uL (0.0-0.8); Eosinophils % 2.5 %; Hematocrit 41.3 % (36-47); Lymphocytes # 0.6 10^3/uL (0.8-4.8); Lymphocytes % 13.3 %; Mean Corpuscular HGB Conc 31.2 g/dL (30-55); Mean Corpuscular Hemoglobin 31.2 pg (27-33); Mean Corpuscular Volume 99.8 fl (85-98); Mean Platelet Volume 10.7 fL (7.4-10.4); Monocytes # 0.4 10^3/uL (0.2-0.9); Monocytes % 7.9 %; Neutrophils # 3.62 10^3/uL (1.8-7.7); Neutrophils % 75.5 %; Nucleated Red Blood Cells % 0 %; Platelet Count 133 10^3/cmm (157-399); Red Blood Count 4.14 10^6/uL (3.85-5.65); Red Cell Distribution Width 12.8 % (12.1-15.1)
[2023-04-12 11:07] VITALS: BP 144/79; PULSE 76; RESP 23; O2SAT 100
--- NOTE | 2023-04-12 11:09 | PC.NURSE ---
daughter at bedside, per daughter pt has hx of panic attacks. pt placed on privacy compliance manager.
--- NOTE | 2023-04-12 11:10 | W.ED.EXTPRO ---
HPI - Extremity Problem General: Chief complaint: Extremity Problem,Nontraumatic Stated complaint: Leg pain/Edema Time Seen by Provider: 04/12/23 10:42 Source: patient Mode of arrival: ambulatory History of Present Illness: 88-year-old female presents emergency room complaining of some swelling in her right leg. She has a history of congestive heart failure she has noticed over the last week she has had episodes of PND and increased cough. She has some chronic orthopnea that she states does not seem to have particularly worsened. She is on Eliquis for atrial fibrillation. She denies any chest pain. No fever sweats or chills Complaint: extremity swelling Onset (ago): week(s) Location: right Quality: aching Relieving factors: nothing Associated symptoms: Reports short of breath; Deny arthralgias, chest pain, fever(s), myalgias or rash Review of Systems Const: Denies: fever(s) or chills Card: Reports: swelling of feet/ankles, dyspnea on exertion and orthopnea; Denies: chest pain Resp: Reports: dyspnea and non-productive cough GI: Denies: abdominal pain, nausea or vomiting : Denies: dysuria, urinary frequency or urinary urgency Musc: Denies: neck pain or back pain Skin/Breast: Denies: rash PFSH ED PFSH: Medical History Atrial fibrillation CHF (congestive heart failure) History of stroke HTN (hypertension) Hypercholesterolemia RLS (restless legs syndrome) Tricuspid valve regurgitation Surgical History H/O section S/P appendectomy S/P cholecystectomy S/P knee replacement 2016 S/P wrist surgery Family History Father Stroke Hypertension Heart disease Mother Sarcoidosis Hypertension Sister Hypertension Social History Smoking and tobacco/nicotine status: never used tobacco/nicotine Physical Exam Const: GENERAL APPEARANCE: cooperative and comfortable ORIENTATION/CONSCIOUSNESS: Yes awake, Yes oriented to person, Yes oriented to place and Yes oriented to time HENMT: COMMON NORMALS: normocephalic, atraumatic and hearing grossly normal bilaterally HEAD & SCALP: normocephalic and atraumatic Resp: COMMON NORMALS: normal respiratory effort, No retractions, No use of accessory muscles and clear to auscultation bilaterally AUSCULTATION: clear to auscultation bilaterally Cardio: COMMON NORMALS: regular rate, regular rhythm and No murmurs present (Cardio) RATE: regular rate RHYTHM: regular rhythm GI: COMMON NORMALS: Soft to palpation and No hepatosplenomegaly present AUSCULTATION: Yes normoactive bowel sounds PALPATION: Yes Soft to palpation, No Tenderness to palpation present (GI), No Guarding due to palpation present (GI) and Yes No hepatosplenomegaly present Extremity: COMMON NORMALS: normal to inspection, capillary refill normal, no clubbing, cyanosis or edema, no calf tenderness and no pedal edema Neuro: SENSORIUM/ORIENTATION: Yes oriented to person, Yes oriented to place and Yes oriented to time Skin: COMMON NORMALS: no rashes or lesions noted GENERAL SKIN EXAM: no rashes or lesions noted Course Vital Signs: Vital signs: Vital Signs Temperature 97.6 F 04/12/23 11:12 Pulse Rate 83 04/12/23 13:50 Respiratory Rate 17 04/12/23 13:50 Blood Pressure 144/78 04/12/23 13:50 Pulse Oximetry 99 04/12/23 13:50 Oxygen Delivery Me thod Room Air 04/12/23 13:36 MDM - Extremity (Nontraumatic) Medical Decision Making Mild fluid overload. She is on Eliquis she is complaining of a lot of swelling just in the 1 leg of the venous duplex does not show DVT. She is describing some PND at night although her chest x-ray is not particularly look significantly fluid overloaded we will increase her Lasix to 80 mg twice a day hold her spironolactone. 3 days of the increase Lasix dose and then follow-up with her primary care doctor on Tuesday. Return if she has further problems. Medical Records I reviewed the patient's medical records. Lab Data I reviewed the patient's lab results. 04/12/23 10:54 04/12/23 10:54 Radiology Impressions Chest X-Ray 04/12/23 11:18 IMPRESSION: No acute findings. Laboratory Results WBC 4.80 10^3/uL (3.29-11.43) 04/12/23 10:54 RBC 4.14 10^6/uL (3.85-5.65) 04/12/23 10:54 Hgb 12.90 g/dL (11.27-16.99) 04/12/23 10:54 Hct 41.3 % (36-47) 04/12/23 10:54 MCV 99.8 fl (85-98) H 04/12/23 10:54 MCH 31.2 pg (27-33) 04/12/23 10:54 MCHC 31.2 g/dL (30-55) 04/12/23 10:54 RDW 12.8 % (12.1-15.1) 04/12/23 10:54 Plt Count 133 10^3/cmm (157-399) L 04/12/23 10:54 MPV 10.7 fL (7.4-10.4) H 04/12/23 10:54 Neut % (Auto) 75.5 % 04/12/23 10:54 Lymph % (Auto) 13.3 % 04/12/23 10:54 [place] % (Auto) 7.9 % 04/12/23 10:54 Eos % (Auto) 2.5 % 04/12/23 10:54 Baso % (Auto) 0.4 % 04/12/23 10:54 Neut # (Auto) 3.62 10^3/uL (1.8-7.7) 04/12/23 10:54 Lymph # (Auto) 0.6 10^3/uL (0.8-4.8) L 04/12/23 10:54 [place] # (Auto) 0.4 10^3/uL (0.2-0.9) 04/12/23 10:54 Eos # (Auto) 0.1 10^3/uL (0.0-0.8) 04/12/23 10:54 Baso # (Auto) 0.0 10^3/uL (0.0-0.1) 04/12/23 10:54 Nucleated RBC % (auto) 0 % 04/12/23 10:54 Nucleated RBCs # 0.0 /100WBC 04/12/23 10:54 Sodium 137 mmol/L (136-145) 04/12/23 10:54 Potassium 3.3 mmol/L (3.5-5.1) L 04/12/23 10:54 Chloride 99 mmol/L (98-107) 04/12/23 10:54 Carbon Dioxide 28 mmol/L (22-29) 04/12/23 10:54 Anion Gap 13.3 (5-19) 04/12/23 10:54 BUN 26 mg/dL (8-23) H 04/12/23 10:54 Creatinine 1.7 mg/dL (0.5-0.9) H 04/12/23 10:54 GFR Calculation Not Reportable 04/12/23 10:54 Glucose 155 mg/dL (65-115) H 04/12/23 10:54 Calculated Osmolality 292 mOsm/kg (285-295) 04/12/23 10:54 Calcium 10.1 mg/dL (8.5-10.5) 04/12/23 10:54 Total Bilirubin 0.6 mg/dL (0.15-1.2) 04/12/23 10:54 AST 16 U/L (0-32) 04/12/23 10:54 ALT 10 U/L (0-33) 04/12/23 10:54 Alkaline Phosphatase 152 U/L (35-105) H 04/12/23 10:54 NT-Pro-B Natriuret Pep 3109 pg/mL (0-450) H 04/12/23 10:54 Total Protein 7.3 g/dL (6.6-8.7) 04/12/23 10:54 Albumin 4.0 g/dL (3.5-5.2) 04/12/23 10:54 Globulin 3.3 g/dL (1.3-4.6) 04/12/23 10:54 Urine Color Yellow (Yellow) 04/12/23 11:41 Urine Appearance Clear (CLEAR) 04/12/23 11:41 Urine pH 6 (5-7) 04/12/23 11:41 Ur Specific [place] 1.015 (1.005-1.030) 04/12/23 11:41 Urine Protein Neg (Negative) 04/12/23 11:41 Urine Glucose (UA) Norm (Normal) 04/12/23 11:41 Urine Ketones Negative (Negative) 04/12/23 11:41 Urine Blood Neg (Negative) 04/12/23 11:41 Urine Nitrate Negative (Negative) 04/12/23 11:41 Urine Bilirubin Neg (Negative) 04/12/23 11:41 Urine Urobilinogen Norm mg/dL (Negative) 04/12/23 11:41 Ur Leukocyte Esterase Negative (Negative) 04/12/23 11:41 All radiology interpretation(s) finalized by discharge Discharge Plan Discharge Patient Disposition: Home Clinical Impression: CHF (congestive heart failure), HTN (hypertension) Condition: Stable Prescriptions: No Action aspirin [Adult Low Dose Aspirin] 81 mg tablet,delayed release (DR/EC) 81 mg PO BEDTIME ropinirole 0.5 mg tablet 0.5 mg PO TID albuterol sulfate [ProAir HFA] 90 mcg/actuation HFA aerosol inhaler 2 puff inhalation Q6H PRN (Reason: shortness of breath or wheezing) Qty: 8.5 3RF ammonium lactate 12 % lotion 1 applic topical DAILY Qty: 225 2RF Rx Instructions: apply film to rough scaly spots Eliquis 2.5 mg tablet 2.5 mg PO BID 90 Days Qty: 180 4RF atorvastatin 10 mg tablet 10 mg PO DAILY 90 Days Qty: 90 3RF acetaminophen [Tylenol Ex Str Rapid Release] 500 mg Tablet 500 mg PO Q6H PRN (Reason: Pain) alum-mag hydroxide-simeth [Mylanta] 200-200-20 mg/5 mL Suspension 15 ml PO QID PRN (Reason: Indigestion) Rx Instructions: administer between meals and at bedtime Coricidin 2-325 mg Tablet 1 tab PO Q6H PRN (Reason: Congestion) metoprolol tartrate 50 mg tablet See Rx Instructions .ROUTE .COMPLEX Rx Instructions: one and a half tablets in the am and 1 tablet in the pm furosemide 40 mg tablet 40 mg PO BID spironolactone 25 mg tablet 25 mg PO DAILY alprazolam 0.5 mg tablet 0.5 mg PO BID Flonase 50 mcg/actuation [place],Suspension 1 spray INTRANASAL DAILY PRN (Reason: Allergic Symptoms) Rx Instructions: administer into each nostril Centrum Silver Tablet 1 tab PO DAILY [place] 3 Fish Oil 684-1,200 mg Capsule,Delayed Release(Dr/Ec) 1 cap PO DAILY Discharge Orders: Discharge ED (Routine); Ordered 04/12/23 Ordered By: Clarence Cisse Referrals: Reji Bradley DO [Primary Care Provider] - Discharge Diet: Usual diet Discharge Activity: Resume usual activity Patient Instructions: Opioid Safety, Pain Management Activity Restrictions/Additional Instructions: Increase your Lasix to 80 mg twice daily for the next 3 days, follow-up with your primary care doctor in 3 days. Hold spironolactone during this time. Coding Level of Care Code ED Osteopathic Resident for Carlitos Michaud
[2023-04-12 11:12] VITALS: TEMP 36.4
--- NOTE | 2023-04-12 11:18 | XRR_ITS ---
PROCEDURE INFORMATION: Exam: XR Chest Exam date and time: 04/12/2023 11:26 AM Age: 88 years old Clinical indication: Cough and dyspnea; Additional info: Dyspnea/cough TECHNIQUE: Imaging protocol: Radiologic exam of the chest. Views: 1 view. COMPARISON: CR XR chest 1V portable [id number] 08/10/2022 8:54 AM FINDINGS: Lungs: No focal consolidation. Pleural spaces: No pneumothorax. Heart/Mediastinum: Stable calcified right upper mediastinal mass. There is moderate enlargement of the cardiac silhouette. Diaphragm: There is moderate asymmetric elevation of the right hemidiaphragm. Bones/joints: Bones are unremarkable. XR/XR chest 1V portable [id number] IMPRESSION: No acute findings.
--- NOTE | 2023-04-12 11:19 | ECG_ITS ---
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 Measurements Intervals [place] Rate: 87 P: 0 UT: 0 QRS: 74 QRSD: 90 T: 34 QT: 379 QTc: 458 Interpretive Statements ATRIAL FIBRILLATION NONSPECIFIC T-WAVE ABNORMALITY ABNORMAL RHYTHM ECG Compared to ECG 08/10/2022 09:08:03 T-wave abnormality now present Electronically Signed On 04-12-2023 12:16:47 CDT by Camille Bustos M.D. [email or web address] medical [email or web address]/OM/[id number]
[2023-04-12 11:20] LABS: Alanine Aminotransferase 10 U/L (0-33); Alkaline Phosphatase 152 U/L (35-105); Anion Gap 13.3 (5-19); Aspartate Amino Transferase 16 U/L (0-32); Blood Urea Nitrogen 26 mg/dL (8-23); Calcium 10.1 mg/dL (8.5-10.5); Carbon Dioxide 28 mmol/L (22-29); Chloride 99 mmol/L (98-107); Globulin 3.3 g/dL (1.3-4.6); Glucose 155 mg/dL (65-115); Osmolality Calculated 292 mOsm/kg (285-295); Potassium 3.3 mmol/L (3.5-5.1); Sodium 137 mmol/L (136-145); Total Bilirubin 0.6 mg/dL (0.15-1.2); Total Protein 7.3 g/dL (6.6-8.7)
[2023-04-12 11:40] VITALS: BP 144/79; PULSE 84; RESP 29; O2SAT 98
[2023-04-12 11:45] LABS: Add Urine Microscopic? NO; Charge for UA Resulting for Rev
[2023-04-12 11:49] LABS: Urine Appearance Clear (CLEAR); Urine Color Yellow (Yellow); pH Urine 6 (5-7)
[2023-04-12] MEDS: potassium chloride oral liq 20 mEq/15 mL UDC 40 MEQ PO (11:49)
[2023-04-12 11:50] LABS: Bilirubin Urine Neg (Negative); Blood Urine Neg (Negative); Glucose Urine UA Norm (Normal); Ketones Urine Negative (Negative); Leukocyte Esterase Urine Negative (Negative); Nitrate Urine Negative (Negative); Protein Urine Neg (Negative); Specific Gravity, Urine 1.015 (1.005-1.030); Urobilinogen Urine Norm (Negative)
[2023-04-12] MEDS: FUROsemide 10 mg/mL SDV 10mL 60 MG IVP (11:55)
[2023-04-12 11:59] LABS: NT Pro B Type Natriuretic Pept 3109 pg/mL (0-450)
--- NOTE | 2023-04-12 12:12 | USCV_ITS ---
Tereza Cruz Age: 88 Gender: F : 1935 Exam Date: 04/12/2023 12:29 Ordering Phys: Clarence Cisse DO Technologist: LILIANA Exam Location: [facility] [place] Indication: RLE PAIN AND SWELLING HISTORY: Lower extremity swelling. Lower extremity pain. PROCEDURES: Venous duplex imaging was performed in only the right lower extremity. The following venous structures were evaluated: common femoral vein, profunda vein, proximal portion of the greater saphenous vein, superficial femoral vein, and the popliteal vein. In addition, the posterior tibial and peroneal trunk were evaluated. Serial compression, augmentation maneuvers, and spectral Doppler flow evaluation were performed. FINDINGS: No evidence of DVT seen in any vessel visualized at this time. CONCLUSIONS No evidence of right lower extremity DVT. Hosea Hope MD (Electronically Signed) Final Date: 12 April 2023 15:20 S
[2023-04-12 13:36] VITALS: PULSE 90; RESP 22; O2SAT 97
[2023-04-12 13:50] VITALS: BP 144/78; PULSE 83; RESP 17; O2SAT 99
== END 2023-04-12 13:52 | disposition home or self-care (01) ==
PROVIDERS: Emergency Provider Family Medicine; PCP Internal Medicine
DX: I11.0 Hypertensive heart disease with heart failure (principal); I50.9 Heart failure, unspecified; Z79.82 Long term (current) use of aspirin; Z79.01 Long term (current) use of anticoagulants; Z86.73 Personal history of transient ischemic attack (TIA), and cerebral infarction without residual deficits; M79.604 Pain in right leg
CPT/HCPCS: 36415; 71045; 80053; 81003; 83880; 85025; 93005; 93971; 96374; 99285; J1940

== ENCOUNTER → 2024-02-29 09:21 | Outpatient (BNVA) | payer MEDICARE, OTHER, SELFPAY | PROVIDERS: PCP Internal Medicine; Referring Provider Internal Medicine; Visit Provider Internal Medicine | DX: N18.9 Chronic kidney disease, unspecified (principal); E21.0 Primary hyperparathyroidism; M81.0 Age-related osteoporosis without current pathological fracture | CPT/HCPCS: 99204 ==

== ENCOUNTER 2024-03-28 07:50 | Emergency (ER) | payer MEDICARE, OTHER, SELFPAY ==
--- NOTE | 2024-03-28 08:00 | ECG_ITS ---
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 Measurements Intervals [place] Rate: 80 P: 0 VA: 0 QRS: 55 QRSD: 93 T: 9 QT: 381 QTc: 440 Interpretive Statements ATRIAL FIBRILLATION WITH ABERRANT CONDUCTION OR VENTRICULAR PREMATURE COMPLEXES SEPTAL MYOCARDIAL INFARCTION , OF INDETERMINATE AGE [40+ ms Q WAVE IN V1/V2] INTERPRETATION BASED ON A DEFAULT AGE OF 40 YEARS Compared to ECG 04/12/2023 11:19:50 Ventricular premature complex(es) now present Aberrant conduction of supraventricular beat(s) now present Myocardial infarct finding now present T-wave abnormality no longer present Electronically Signed On 03-28-2024 23:35:06 CDT by Bib Blanc M.D. [id number]
--- NOTE | 2024-03-28 08:00 | ED_ITS ---
HPI - General Adult 2 General: Chief complaint: Extremity Problem,Nontraumatic Stated complaint: r. foot swollen, hurt to walk Time Seen by Provider: 03/28/24 07:52 Source: patient Mode of arrival: ambulatory Limitations: no limitations History of Present Illness: 88-year-old female states that she has b een having pain erythema and some slight swelling to her left foot over the last 4 to 5 days states that pain is worse and it is very sharp in nature rates an 8 out of 10 she denies any injuries to that foot she denies any fevers. Pain is much worse with palpation and trying to walk Associated symptoms: Deny chest pain, dyspnea, headache(s), nausea, rash or vomiting Related Data Home Medications Medication Instructions Recorded Confirmed aspirin 81 mg tablet,delayed 81 mg PO BEDTIME 08/09/19 03/28/24 release (Adult Low Dose Aspirin) ropinirole 0.5 mg tablet 0.5 mg PO QID 02/05/21 03/28/24 chlorpheniramine-acetaminophen 2 1 tab PO Q6H PRN Congestion 08/10/22 03/28/24 mg-325 mg tablet metoprolol tartrate 50 mg tablet 25 mg PO BID 08/10/22 03/28/24 furosemide 40 mg tablet 40 mg PO BID 04/12/23 03/28/24 Joint Flex Cream See Rx Instructions .Route .COMPLEX 03/28/24 03/28/24 alprazolam 0.25 mg tablet See Rx Instructions .Route 03/28/24 03/28/24 .COMPLEX PRN anxiety metolazone 2.5 mg tablet See Rx Instructions .Route 03/28/24 03/28/24 .COMPLEX PRN water weight Previous Rx's Medication Instructions Recorded apixaban 2.5 mg tablet (Eliquis) 2.5 mg PO BID 90 days #180 tabs 09/25/20 atorvastatin 10 mg tablet 10 mg PO DAILY 90 days #90 tabs 10/09/20 cephalexin 500 mg capsule 500 mg PO TID 7 days #21 caps 03/28/24 hydrocodone 5 mg-acetaminophen 325 1 tab PO Q6H PRN pain #14 tabs 03/28/24 mg tablet ondansetron 4 mg disintegrating 4 mg PO Q6H PRN nausea and 03/28/24 tablet vomiting #14 tabs Allergies Allergy/AdvReac Type Severity Reaction Status Date / Time codeine Allergy Unknown ADR-Nausea Verified 02/29/24 07:43 hydrocodone Allergy Unknown ADR-Nausea Verified 02/29/24 07:43 Review of Systems 2 Const: Denies: fever(s), chills, body aches or change in appetite ENMT: Denies: throat pain or dental pain Card: Denies: chest pain Resp: Denies: dyspnea GI: Denies: abdominal pain, nausea, vomiting or diarrhea Musc: Reports: extremity pain; Denies: neck pain or back pain Skin/Breast: Reports: erythema; Denies: rash Neuro: Denies: headache(s) PFSH ED 2 PFSH: Medical History RLS (restless legs syndrome) Tricuspid valve regurgitation History of stroke Hypercholesterolemia HTN (hypertension) CHF (congestive heart failure) Atrial fibrillation Surgical History H/O section S/P appendectomy S/P cholecystectomy S/P knee replacement 2016 S/P wrist surgery Family History Father Stroke Hypertension Heart disease Mother Sarcoidosis Hypertension Sister Hypertension Social History Smoking and tobacco/nicotine status: never used tobacco/nicotine Physical Exam 2 Const: COMMON NORMALS: patient oriented x3 HENMT: COMMON NORMALS: normocephalic and atraumatic HEAD & SCALP: n ormocephalic and atraumatic Eye: COMMON NORMALS: conjunctivae normal CONJUNCTIVA: Yes conjunctivae normal Neck/C-Spine: COMMON NORMALS: full ROM and supple Chest: COMMONS NORMALS: normal inspection of the chest and normal palpation of entire chest wall Resp: COMMON NORMALS: normal respiratory effort, No retractions, No use of accessory muscles and clear to auscultation bilaterally AUSCULTATION: clear to auscultation bilaterally Cardio: COMMON NORMALS: No murmurs present (Cardio) RATE: tachycardic R HYTHM: abnormal rhythm irregularly irregular GI: COMMON NORMALS: Normal to inspection, nondistended, normoactive bowel sounds present, Soft to palpation, non-tender and no masses PALPATION: Yes Soft to palpation Extremity: COMMON NORMALS: full ROM NARRATIVE EXTREMITY EXAM: Erythema to distal portion left foot with warmth to touch distal pulses intact Neuro: COMMON NORMALS: patient oriented x3, moves all extremities and no focal motor deficits Psych: COMMON NORMALS: mental status grossly normal, Normal thought process present and cooperative THOUGHT PROCESS: Normal thought process present Skin: COMMON NORMALS: no rashes or lesions noted and no wounds GENERAL SKIN EXAM: no rashes or lesions noted Course 2 Vital Signs: Vital signs: Vital Signs Temperature 98.1 F 03/28/24 08:01 Pulse Rate 74 03/28/24 08:31 Respiratory Rate 22 H 03/28/24 08:01 Blood Pressure 124/74 03/28/24 08:31 Pulse Oximetry 97 03/28/24 08:31 Oxygen Delivery Me thod Room Air 03/28/24 08:31 MDM - General Adult Medical Decision Making Patient presents here with cellulitis to her left foot she has no signs of osteomyelitis blood work here is normal we will start antibiotics she stable for discharge return if worsening Medical Records I reviewed the patient's medical records. Lab Data I reviewed the patient's lab results. 03/28/24 08:05 03/28/24 08:05 Laboratory Results WBC 5.16 10^3/uL (3.29-11.43) 03/28/24 08:05 RBC 3.87 10^6/uL (3.85-5.65) 03/28/24 08:05 Hgb 12.30 g/dL (11.27-16.99) 03/28/24 08:05 Hct 39.3 % (36-47) 03/28/24 08:05 MCV 101.6 fl (85-98) H 03/28/24 08:05 MCH 31.8 pg (27-33) 03/28/24 08:05 MCHC 31.3 g/dL (30-55) 03/28/24 08:05 RDW 14.8 % (12.1-15.1) 03/28/24 08:05 Plt Count 100 10^3/cmm (157-399) L 03/28/24 08:05 MPV 10.9 fL (7.4-10.4) H 03/28/24 08:05 Neut % (Auto) 75.8 % 03/28/24 08:05 Lymph % (Auto) 11.6 % 03/28/24 08:05 [place] % (Auto) 11.0 % 03/28/24 08:05 Eos % (Auto) 1.0 % 03/28/24 08:05 Baso % (Auto) 0.2 % 03/28/24 08:05 Neut # (Auto) 3.91 10^3/uL (1.8-7.7) 03/28/24 08:05 Lymph # (Auto) 0.6 10^3/uL (0.8-4.8) L 03/28/24 08:05 [place] # (Auto) 0.6 10^3/uL (0.2-0.9) 03/28/24 08:05 Eos # (Auto) 0.1 10^3/uL (0.0-0.8) 03/28/24 08:05 Baso # (Auto) 0.0 10^3/uL (0.0-0.1) 03/28/24 08:05 Nucleated RBC % (auto) 0 % 03/28/24 08:05 Nucleated RBCs # 0.0 /100WBC 03/28/24 08:05 ESR 53 mm/hr (0-15) H 03/28/24 08:05 Sodium 142 mmol/L (136-145) 03/28/24 08:05 Potassium 3.7 mmol/L (3.5-5.1) 03/28/24 08:05 Chloride 106 mmol/L (98-107) 03/28/24 08:05 Carbon Dioxide 25 mmol/L (22-29) 03/28/24 08:05 Anion Gap 14.7 (5-19) 03/28/24 08:05 BUN 24 mg/dL (8-23) H 03/28/24 08:05 Creatinine 1.2 mg/dL (0.5-0.9) H 03/28/24 08:05 GFR Calculation Not Reportable 03/28/24 08:05 Glucose 121 mg/dL (65-115) H 03/28/24 08:05 Calculated Osmolality 299 mOsm/kg (285-295) H 03/28/24 08:05 Calcium 10.2 mg/dL (8.5-10.5) 03/28/24 08:05 Total Bilirubin 1.0 mg/dL (0.15-1.2) 03/28/24 08:05 AST 18 U/L (0-32) 03/28/24 08:05 ALT 9 U/L (0-33) 03/28/24 08:05 Alkaline Phosphatase 126 U/L (35-105) H 03/28/24 08:05 C-Reactive Protein 44.4 mg/L (0.0-4.9) H 03/28/24 08:05 Total Protein 7.3 g/dL (6.6-8.7) 03/28/24 08:05 Albumin 4.1 g/dL (3.5-5.2) 03/28/24 08:05 Globulin 3.2 g/dL (1.3-4.6) 03/28/24 08:05 All radiology interpretation(s) finalized by discharge EKG Data EKG 1: I personally reviewed and interpreted this EKG as follows: EKG interpretation date: 03/28/24 EKG interpretation time: 08:20 Interpretation: afib hr [address] or t wave abnormalities qrs 93 qtc 416 Discharge Plan Discharge Patient Disposition: Home Clinical Impression: Cellulitis Qualifiers: Site of cellulitis of extremity: lower extremity Laterality: left Condition: Stable Prescriptions: New cephalexin 500 mg capsule 500 mg PO TID 7 Days Qty: 21 0RF hydrocodone-acetaminophen 5-325 mg tablet 1 tab PO Q6H PRN (Reason: pain) Qty: 14 0RF ondansetron 4 mg tablet,disintegrating 4 mg PO Q6H PRN (Reason: nausea and vomiting) Qty: 14 0RF No Action aspirin [Adult Low Dose Aspirin] 81 mg tablet,delayed release (DR/EC) 81 mg PO BEDTIME ropinirole 0.5 mg tablet 0.5 mg PO QID Eliquis 2.5 mg tablet 2.5 mg PO BID 90 Days Qty: 180 4RF atorvastatin 10 mg tablet 10 mg PO DAILY 90 Days Qty: 90 3RF metolazone 2.5 mg tablet See Rx Instructions .ROUTE .COMPLEX PRN (Reason: water weight) Rx Instructions: take one tablet by mouth twice weekly if weight gain is over 3lbs in one day Joint Flex Cream See Rx Instructions .ROUTE .COMPLEX Rx Instructions: Apply generously to painful muscles and joints, gently massage until the JointFlex Pain Relieving Cream disappears alprazolam 0.25 mg tablet See Rx Instructions .ROUTE .COMPLEX PRN (Reason: anxiety ) Rx Instructions: take 25 mg orally at bedtime as needed Coricidin 2-325 mg Tablet 1 tab PO Q6H PRN (Reason: Congestion) metoprolol tartrate 50 mg tablet 25 mg PO BID furosemide 40 mg tablet 40 mg PO BID Discharge Orders: Discharge ED (Routine); Ordered 03/28/24 Ordered By: Pennie Zayas Referrals: Reji Bradley DO [Primary Care Provider] - 4-7 days Discharge Diet: Advance as tolerated Discharge Activity: Resume usual activity Patient Instructions: Cellulitis (ED) Coding Level of Care Code ED 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
[2024-03-28 08:01] VITALS: BP 209/141; PULSE 117; RESP 22; TEMP 36.7; O2SAT 97; BMI 26.7
--- NOTE | 2024-03-28 08:02 | XR_ITS ---
WS: [id number] Exam: XR foot LT min 3V* [id number] Date/Time of Exam: 03/28/2024 8:09 AM Reason For Exam: pain No acute fracture or dislocation. Degenerative changes of the IP joints and midfoot joints. Pronounce d osteopenia. Calcaneal spurs. No soft tissue foreign bodies are seen. IMPRESSION1. Degenerative changes. Marked osteopenia. 2. No acute fracture.
[2024-03-28] MEDS: ondansetron 2 mg/ML SDV 2 mL 4 MG IVP (08:09)
[2024-03-28] MEDS: morphine 4 mg/mL SDV 1 mL IVP (08:12)
[2024-03-28] MEDS: dilTIAZem 5 mg/mL SDV 5 mL 20 MG IVP (08:13)
[2024-03-28 08:19] LABS: Basophils % 0.2 %; Eosinophils # 0.1 10^3/uL (0.0-0.8); Hematocrit 39.3 % (36-47); Lymphocytes # 0.6 10^3/uL (0.8-4.8); Lymphocytes % 11.6 %; Mean Corpuscular HGB Conc 31.3 g/dL (30-55); Mean Corpuscular Hemoglobin 31.8 pg (27-33); Mean Corpuscular Volume 101.6 fl (85-98); Mean Platelet Volume 10.9 fL (7.4-10.4); Monocytes # 0.6 10^3/uL (0.2-0.9); Neutrophils # 3.91 10^3/uL (1.8-7.7); Neutrophils % 75.8 %; Nucleated Red Blood Cells % 0 %; Platelet Count 100 10^3/cmm (157-399); Red Blood Count 3.87 10^6/uL (3.85-5.65); Red Cell Distribution Width 14.8 % (12.1-15.1); White Blood Count 5.16 10^3/uL (3.29-11.43)
[2024-03-28 08:28] LABS: Erythrocyte Sedimentation Rate 53 mm/hr (0-15)
[2024-03-28 08:31] VITALS: BP 124/74; PULSE 74; O2SAT 97
[2024-03-28 08:34] LABS: Alanine Aminotransferase 9 U/L (0-33); Albumin Level 4.1 g/dL (3.5-5.2); Alkaline Phosphatase 126 U/L (35-105); Anion Gap 14.7 (5-19); Aspartate Amino Transferase 18 U/L (0-32); Blood Urea Nitrogen 24 mg/dL (8-23); C Reactive Protein 44.4 mg/L (0.0-4.9); Calcium 10.2 mg/dL (8.5-10.5); Carbon Dioxide 25 mmol/L (22-29); Chloride 106 mmol/L (98-107); Creatinine Clr Calc Pharmacy 32.4721; Globulin 3.2 g/dL (1.3-4.6); Glucose 121 mg/dL (65-115); Osmolality Calculated 299 mOsm/kg (285-295); Potassium 3.7 mmol/L (3.5-5.1); Sodium 142 mmol/L (136-145); Total Protein 7.3 g/dL (6.6-8.7)
[2024-03-28] MEDS: vancomycin 1,000 MG in sodium chloride 0.9% 250 ML 250 MG IV (09:52)
[2024-03-28 10:31] VITALS: BP 119/63; PULSE 73; O2SAT 99
[2024-03-28 11:05] VITALS: BP 128/73; PULSE 87; RESP 19; O2SAT 99
== END 2024-03-28 11:10 | disposition home or self-care (01) ==
PROVIDERS: Emergency Provider Emergency Medicine; PCP Internal Medicine
DX: L03.116 Cellulitis of left lower limb (principal); Z79.82 Long term (current) use of aspirin; Z79.01 Long term (current) use of anticoagulants; I48.91 Unspecified atrial fibrillation; Z86.73 Personal history of transient ischemic attack (TIA), and cerebral infarction without residual deficits; I11.0 Hypertensive heart disease with heart failure; I50.9 Heart failure, unspecified
CPT/HCPCS: 73630; 80053; 85025; 85651; 86140; 93005; 96374; 96375; 99285; J2270; J2405; J3370; J3490; J7050

== ENCOUNTER 2024-04-30 12:55 | Outpatient (CLI) | payer MEDICARE, OTHER, SELFPAY ==
--- NOTE | 2024-04-30 12:59 | USCV_ITS ---
Tereza Cruz Age: 89 Gender: F : 1935 Exam Date: 04/30/2024 13:42 Ordering Phys: Carmen Cespedes Technologist: [place] [facility] [place] [facility] [place] Indication: poor pulses Risk Factors: Previous Vascular Surgery: RIGHT LEFT BP: 130.0 / 80.00 BP: 130.0/ 80.00 0 0 Waveform Velocity (cm/s) Velocity (cm/s) Waveform Triphasic 149.7 Iliac Prox 95.5 Triphasic Triphasic 124.1 Iliac Mid 85.1 Triphasic Triphasic Iliac Distal Triphasic 112.9 83.1 Triphasic 105.0 HOURLY CAREGIVER 108.0 Triphasic Triphasic 93.0 SFA Prox 48.0 Triphasic Triphasic 76.0 SFA Mid 79.0 Triphasic Triphasic 70.0 SFA Dist 85.0 Triphasic Triphasic 49.0 POP 51.0 Triphasic Biphasic 118.0 WARD AIDE 51.0 Biphasic Triphasic 93.0 DPA 89.0 Triphasic 1.0 ETHAN 1.0 FINDINGS Resting ETHAN 1.0 bilaterally. Mild diffuse plaques in the iliac and femoral arteries bilaterally Near normal arterial Doppler waveforms and velocities bilaterally CONCLUSIONS 1. Normal resting ABIs bilaterally suggesting no significant arterial obstruction 2. Mild diffuse plaques in the iliac and femoral arteries bilaterally Dr Bib Blanc MD [facility] (Electronically Signed) Final Date: 01 May 2024 21:17 S
== END 2024-04-30 12:56 | disposition home or self-care (01) ==
LOC: RAD 12:56
PROVIDERS: PCP Internal Medicine; Visit Provider Physician Assistant
DX: I73.9 Peripheral vascular disease, unspecified (principal)
CPT/HCPCS: 93925

== ENCOUNTER 2024-05-11 12:55 | Outpatient (CLI) | payer MEDICARE, OTHER, SELFPAY ==
[2024-05-11 13:49] LABS: Alanine Aminotransferase 14 U/L (0-33); Albumin Level 4.1 g/dL (3.5-5.2); Alkaline Phosphatase 122 U/L (35-105); Anion Gap 12.7 (5-19); Aspartate Amino Transferase 24 U/L (0-32); Blood Urea Nitrogen 23 mg/dL (8-23); Calcium 10.6 mg/dL (8.5-10.5); Carbon Dioxide 31 mmol/L (22-29); Chloride 102 mmol/L (98-107); Globulin 3.2 g/dL (1.3-4.6); Glucose 81 mg/dL (65-115); Osmolality Calculated 297 mOsm/kg (285-295); Potassium 3.7 mmol/L (3.5-5.1); Sodium 142 mmol/L (136-145); Total Bilirubin 0.5 mg/dL (0.15-1.2); Total Protein 7.3 g/dL (6.6-8.7)
[2024-05-11 13:58] LABS: Calcium 10.5 mg/dL (8.5-10.5)
[2024-05-11 14:05] LABS: 25 Hydroxy Vitamin D 35 ng/mL (30-100); Parathyroid Hormone 295.9 pg/mL (15-65)
== END 2024-05-11 12:56 | disposition home or self-care (01) ==
LOC: LAB 12:56
PROVIDERS: PCP Internal Medicine; Visit Provider Internal Medicine
DX: E21.0 Primary hyperparathyroidism (principal); M81.0 Age-related osteoporosis without current pathological fracture
CPT/HCPCS: 36415; 80053; 82306; 82310; 83970

== ENCOUNTER → 2024-05-16 10:27 | Outpatient (BNVA) | payer MEDICARE, OTHER, SELFPAY | PROVIDERS: PCP Internal Medicine; Visit Provider Internal Medicine | DX: N18.9 Chronic kidney disease, unspecified (principal); E21.0 Primary hyperparathyroidism; M81.0 Age-related osteoporosis without current pathological fracture | CPT/HCPCS: 99214 ==

== ENCOUNTER 2024-06-19 11:22 | Emergency (ER) | payer MEDICARE, OTHER, SELFPAY ==
[2024-06-19] VITALS (7 sets, daily range): BP systolic 134–220; BP diastolic 93–145; PULSE 85–116; RESP 18; TEMP 36.4; O2SAT 93–98; BMI 29.2
--- NOTE | 2024-06-19 12:27 | ED_ITS ---
HPI - Epistaxis 2 General: Chief complaint: Epistaxis Stated complaint: nose bleeds Time Seen by Provider: 06/19/24 12:15 History of Present Illness: 89-year-old female presents to the emerg ency room with complaints of epistaxis. She is on apixaban. She had bleeding off and on overnight. Blood pressure is markedly elevated as well. Patient is not having any active bleeding when he first came seen and patient she has had a little bit of oozing mostly from the left nostril. Associated symptoms: Deny fever(s) Related Data Home Medications Medication Instructions Recorded Confirmed aspirin 81 mg tablet,delayed 81 mg PO BEDTIME 08/09/19 06/19/24 release (Adult Low Dose Aspirin) ropinirole 0.5 mg tablet 0.5 mg PO QID 02/05/21 06/19/24 chlorpheniramine-acetaminophen 2 1 tab PO Q6H PRN Congestion 08/10/22 06/19/24 mg-325 mg tablet (Coricidin HBP Cold and Flu) furosemide 40 mg tablet 40 mg PO BID 04/12/23 06/19/24 Joint Flex Cream See Rx Instructions .Route .COMPLEX 03/28/24 06/19/24 alprazolam 0.25 mg tablet 0.25 mg PO BEDTIME PRN anxiety 03/28/24 06/19/24 metolazone 2.5 mg tablet See Rx Instructions .Route 03/28/24 06/19/24 .COMPLEX PRN water weight acetaminophen 500 mg tablet 1,000 mg PO Q6H PRN Pain 06/19/24 06/19/24 (Tylenol Extra Strength) atorvastatin 10 mg tablet 10 mg PO QPM 06/19/24 06/19/24 cyanocobalamin (vitamin B-12) 1,000 mcg PO DAILY 06/19/24 06/19/24 1,000 mcg tablet (Vitamin B-12) potassium chloride 20 mEq 20 meq PO DAILY 06/19/24 06/19/24 tablet,extended release(part/cryst) zinc sulfate 50 mg zinc (220 mg) 50 mg PO BID 06/19/24 06/19/24 tablet Previous Rx's Medication Instructions Recorded apixaban 2.5 mg tablet (Eliquis) 2.5 mg PO BID 90 days #180 tabs 09/25/20 lorazepam 2 mg tablet (Ativan) 2 mg PO Q8H PRN anxiety #14 tabs 06/19/24 metoprolol tartrate 25 mg tablet 25 mg PO BID #60 tabs 06/19/24 Allergies Allergy/AdvReac Type Severity Reaction Status Date / Time codeine Allergy Unknown ADR-Nausea Verified 06/19/24 11:35 hydrocodone Allergy Unknown ADR-Nausea Verified 06/19/24 11:35 Review of Systems 2 Const: Denies: fever(s) or chills ENMT: Reports: epistaxis Card: Denies: chest pain Resp: Denies: dyspnea GI: Denies: abdominal pain : Denies: dysuria, urinary frequency or urinary urgency Musc: Denies: neck pain or back pain Skin/Breast: Denies: rash PFSH ED 2 PFSH: Medical History RLS (restless legs syndrome) Tricuspid valve regurgitation History of stroke Hypercholesterolemia HTN (hypertension) CHF (congestive heart failure) Atrial fibrillation Surgical History H/O section S/P appendectomy S/P cholecystectomy S/P knee replacement 2016 S/P wrist surgery Family History Father Stroke Hypertension Heart disease Mother Sarcoidosis Hypertension Sister Hypertension Social History Smoking and tobacco/nicotine status: never used tobacco/nicotine Physical Exam 2 Const: GENERAL APPEARANCE: cooperative ORIENTATION/CONSCIOUSNESS: Yes awake, Yes oriented to person, Yes oriented to place and Yes oriented to time HENMT: COMMON NORMALS: normocephalic, atraumatic and hearing grossly normal bilaterally HEAD & SCALP: normocephalic and atraumatic OTHER: No active bleeding from either nare. There is a visible clot in the left nare. Resp: COMMON NORMALS: normal respiratory effort, No retractions, No use of accessory muscles and clear to auscultation bilaterally AUSCULTATION: clear to auscultation bilaterally Cardio: COMMON NORMALS: regular rate, regular rhythm and No murmurs present (Cardio) RATE: regular rate RHYTHM: regular rhythm Extremity: COMMON NORMALS: normal to inspection, capillary refill normal, no clubbing, cyanosis or edema, no calf tenderness and no pedal edema Neuro: SENSORIUM/ORIENTATION: Yes oriented to person, Yes oriented to place and Yes oriented to time Skin: COMMON NORMALS: no rashes or lesions noted GENERAL SKIN EXAM: no rashes or lesions noted Course 2 Vital Signs: Vital signs: Vital Signs Temperature 97.5 F L 06/19/24 11:32 Pulse Rate 112 H 06/19/24 17:22 Respiratory Rate 18 06/19/24 11:32 Blood Pressure 134/97 06/19/24 17:22 Pulse Oximetry 97 06/19/24 17:22 Oxygen Delivery Me thod Room Air 06/19/24 11:32 MDM - Epistaxis Medical Decision Making No active bleeding while in the emergency room. We have her blow her nose forcefully and then rinse with nasal saline spray applied to oxymetazoline on and patient had no further bleeding. Oxymetazoline was repeated just prior to discharge she has already been holding her Eliquis she had been on half a dose. She has not taken the Eliquis for couple of days. Discussed the risks of stopping. She is at increased risk for stroke. However she is quite frustrated with the nosebleeds at this point we decided after discussing to have her continue to hold it until she sees ENT. She should contact Dr. Brown's office at the first opportunity. Hold her Eliquis. Use oxymetazoline 3-4 times a day. Return if she has further problems. Note her heart rate did increase slightly while she was here increased her metoprolol to 25 twice daily also gave her Ativan as needed for anxiety. At the time of discharge her rate is controlled. Lab Data 06/19/24 12:53 06/19/24 12:53 Laboratory Results WBC 3.61 10^3/uL (3.29-11.43) 06/19/24 12:53 RBC 3.59 10^6/uL (3.85-5.65) L 06/19/24 12:53 Hgb 11.40 g/dL (11.27-16.99) 06/19/24 12:53 Hct 37.5 % (36-47) 06/19/24 12:53 MCV 104.5 fl (85-98) H 06/19/24 12:53 MCH 31.8 pg (27-33) 06/19/24 12:53 MCHC 30.4 g/dL (30-55) 06/19/24 12:53 RDW 13.8 % (12.1-15.1) 06/19/24 12:53 Plt Count 93 10^3/cmm (157-399) L 06/19/24 12:53 MPV 10.5 fL (7.4-10.4) H 06/19/24 12:53 Neut % (Auto) 70.6 % 06/19/24 12:53 Lymph % (Auto) 17.2 % 06/19/24 12:53 [place] % (Auto) 10.2 % 06/19/24 12:53 Eos % (Auto) 1.1 % 06/19/24 12:53 Baso % (Auto) 0.6 % 06/19/24 12:53 Neut # (Auto) 2.55 10^3/uL (1.8-7.7) 06/19/24 12:53 Lymph # (Auto) 0.6 10^3/uL (0.8-4.8) L 06/19/24 12:53 [place] # (Auto) 0.4 10^3/uL (0.2-0.9) 06/19/24 12:53 Eos # (Auto) 0.0 10^3/uL (0.0-0.8) 06/19/24 12:53 Baso # (Auto) 0.0 10^3/uL (0.0-0.1) 06/19/24 12:53 Nucleated RBC % (auto) 0 % 06/19/24 12:53 Nucleated RBCs # 0.0 /100WBC 06/19/24 12:53 Sodium 142 mmol/L (136-145) 06/19/24 12:53 Potassium 3.8 mmol/L (3.5-5.1) 06/19/24 12:53 Chloride 106 mmol/L (98-107) 06/19/24 12:53 Carbon Dioxide 24 mmol/L (22-29) 06/19/24 12:53 Anion Gap 15.8 (5-19) 06/19/24 12:53 BUN 22 mg/dL (8-23) 06/19/24 12:53 Creatinine 1.4 mg/dL (0.5-0.9) H 06/19/24 12:53 GFR Calculation Not Reportable 06/19/24 12:53 Glucose 107 mg/dL (65-115) 06/19/24 12:53 Calculated Osmolality 298 mOsm/kg (285-295) H 06/19/24 12:53 Calcium 10.0 mg/dL (8.5-10.5) 06/19/24 12:53 Total Bilirubin 0.6 mg/dL (0.15-1.2) 06/19/24 12:53 AST 24 U/L (0-32) 06/19/24 12:53 ALT 13 U/L (0-33) 06/19/24 12:53 Alkaline Phosphatase 129 U/L (35-105) H 06/19/24 12:53 Total Protein 6.6 g/dL (6.6-8.7) 06/19/24 12:53 Albumin 3.9 g/dL (3.5-5.2) 06/19/24 12:53 Globulin 2.7 g/dL (1.3-4.6) 06/19/24 12:53 No radiology studies performed this visit Discharge Plan Discharge Patient Disposition: Home Clinical Impression: Epistaxis, HTN (hypertension) Atrial fibrillation Qualifiers: Atrial fibrillation type: persistent (not longstanding) Qualified Code(s): I 48.19 - Other persistent atrial fibrillation Condition: Stable Prescriptions: New metoprolol tartrate 25 mg tablet 25 mg PO BID Qty: 60 0RF lorazepam [Ativan] 2 mg tablet 2 mg PO Q8H PRN (Reason: anxiety) Qty: 14 0RF Discontinued metoprolol tartrate 25 mg tablet 12.5 mg PO BID No Action aspirin [Adult Low Dose Aspirin] 81 mg tablet,delayed release (DR/EC) 81 mg PO BEDTIME ropinirole 0.5 mg tablet 0.5 mg PO QID Eliquis 2.5 mg tablet 2.5 mg PO BID 90 Days Qty: 180 4RF metolazone 2.5 mg tablet See Rx Instructions .ROUTE .COMPLEX PRN (Reason: water weight) Rx Instructions: Take one tablet by mouth twice weekly if weight gain is over 3lbs in one day Joint Flex Cream See Rx Instructions .ROUTE .COMPLEX Rx Instructions: Apply generously to painful muscles and joints, gently massage until the JointFlex Pain Relieving Cream disappears alprazolam 0.25 mg tablet 0.25 mg PO BEDTIME PRN (Reason: anxiety ) Coricidin HBP Cold and Flu 2-325 mg Tablet 1 tab PO Q6H PRN (Reason: Congestion) furosemide 40 mg tablet 40 mg PO BID cyanocobalamin (vitamin B-12) [Vitamin B-12] 1,000 mcg Tablet 1,000 mcg PO DAILY acetaminophen [Tylenol Extra Strength] 500 mg Tablet 1,000 mg PO Q6H PRN (Reason: Pain) zinc sulfate 50 mg zinc (220 mg) Tablet 50 mg PO BID atorvastatin 10 mg tablet 10 mg PO QPM potassium chloride 20 mEq tablet,ER particles/crystals 20 meq PO DAILY Discharge Orders: Discharge ED (Routine); Ordered 06/19/24 Ordered By: Clarence Cisse Referrals: Johann Mccarthy MD [Physician] - Reji Bradley DO [Primary Care Provider] - Discharge Diet: Usual diet Discharge Activity: Increase activity as tolerated Patient Instructions: Opioid Safety, Pain Management Activity Restrictions/Additional Instructions: Thank you for choosing [facility] for your healthcare needs today. It is very important that you follow up as instructed or that you return to the Emergency Department should you have concerns or if your condition changes or worsens in any way. You are seen in the emergency room for epistaxis. We are able to get the bleeding to stop completely you had minimal bleeding on arrival here. After discussion we agreed to have you continue to hold your Eliquis. Continue to take your aspirin however. You should increase your metoprolol to 25 mg twice a day you were given a 25 mg dose while you are in the emergency room. You are also given new prescription so you would had enough pills. You are given Ativan to use 1 tablet every 8 hours as needed for anxiety. We discharged you home with nasal spray bottles of nasal saline and oxymetazoline you should use the oxymetazoline 2 sprays in each nostril 3-4 times a day for the next several days. Follow-up with Dr. Brown at his office as soon as you are able. Coding Level of Care Code ED Asphalt Spreader for Carlitos Michaud
[2024-06-19] MEDS: oxymetazoline 0.05% Nasal Spray 15 mL 2 SPRAY NOSTRIL-B (12:33)
[2024-06-19 12:59] LABS: Basophils % 0.6 %; Eosinophils % 1.1 %; Hematocrit 37.5 % (36-47); Lymphocytes # 0.6 10^3/uL (0.8-4.8); Lymphocytes % 17.2 %; Mean Corpuscular HGB Conc 30.4 g/dL (30-55); Mean Corpuscular Hemoglobin 31.8 pg (27-33); Mean Corpuscular Volume 104.5 fl (85-98); Mean Platelet Volume 10.5 fL (7.4-10.4); Monocytes # 0.4 10^3/uL (0.2-0.9); Monocytes % 10.2 %; Neutrophils # 2.55 10^3/uL (1.8-7.7); Neutrophils % 70.6 %; Nucleated Red Blood Cells % 0 %; Platelet Count 93 10^3/cmm (157-399); Red Blood Count 3.59 10^6/uL (3.85-5.65); Red Cell Distribution Width 13.8 % (12.1-15.1); White Blood Count 3.61 10^3/uL (3.29-11.43)
[2024-06-19 13:17] LABS: Alanine Aminotransferase 13 U/L (0-33); Albumin Level 3.9 g/dL (3.5-5.2); Alkaline Phosphatase 129 U/L (35-105); Anion Gap 15.8 (5-19); Aspartate Amino Transferase 24 U/L (0-32); Blood Urea Nitrogen 22 mg/dL (8-23); Carbon Dioxide 24 mmol/L (22-29); Chloride 106 mmol/L (98-107); Creatinine Clr Calc Pharmacy 26.4088; Globulin 2.7 g/dL (1.3-4.6); Glucose 107 mg/dL (65-115); Osmolality Calculated 298 mOsm/kg (285-295); Potassium 3.8 mmol/L (3.5-5.1); Sodium 142 mmol/L (136-145); Total Bilirubin 0.6 mg/dL (0.15-1.2); Total Protein 6.6 g/dL (6.6-8.7)
[2024-06-19] MEDS: hyDRALAzine 20 mg/mL INJ 1 mL IVP (13:25)
[2024-06-19] MEDS: LORazepam 2 mg/mL INJ 1 mL 1 MG IVP (14:24)
[2024-06-19] MEDS: saline nasal spray 44mL Btl 1 SPRAY NASAL (14:24)
--- NOTE | 2024-06-19 14:53 | ECG_ITS ---
[facility] Date: 2024-06[facility]19 Pat Name: Tereza Cruz Department: Room: Gender: Female Public Health Specialist: : 1935 Requested By: Clarence Toth Order Number: [id number] Neno MD: Bib Blanc M.D. Measurements Intervals [place] Rate: 110 P: 0 VA: 0 QRS: 83 QRSD: 96 T: 48 QT: 336 QTc: 455 Interpretive Statements ATRIAL FIBRILLATION WITH RAPID VENTRICULAR RESPONSE MODERATE ST DEPRESSION [0.05+ mV ST DEPRESSION] Compared to ECG 03/28/2024 08:20:21 ST (T wave) deviation now present Ventricular premature complex(es) no longer present Aberrant conduction of supraventricular beat(s) no longer present Myocardial infarct finding no longer present Electronically Signed On 06-19-2024 21:47:03 FABRICATION AND ASSEMBLY SUPERVISOR by Bib Blanc M.D. [id number]
[2024-06-19] MEDS: metoprolol tartrate 1 mg/1 mL SDV 5 mL 2.5 MG IVP (15:26)
[2024-06-19] MEDS: LORazepam 2 mg Tablet PO (15:28)
[2024-06-19] MEDS: metoprolol tartrate 25 mg Tablet PO (15:28)
== END 2024-06-19 17:05 | disposition home or self-care (01) ==
PROVIDERS: Emergency Provider Family Medicine; PCP Internal Medicine
DX: R04.0 Epistaxis (principal); I11.0 Hypertensive heart disease with heart failure; I50.9 Heart failure, unspecified; I48.19 Other persistent atrial fibrillation; Z79.01 Long term (current) use of anticoagulants; Z86.73 Personal history of transient ischemic attack (TIA), and cerebral infarction without residual deficits
CPT/HCPCS: 36415; 80053; 85025; 93005; 96374; 96375; 99284; J0360; J2060; J3490

== ENCOUNTER 2024-06-28 09:40 | Outpatient (CLI) | payer MEDICARE, OTHER, SELFPAY ==
--- NOTE | 2024-06-28 09:46 | USCV_ITS ---
Tereza Cruz Age: 89 Gender: F : 1935 Exam Date: 06/28/2024 10:38 Ordering Phys: Forest Cespedes MD Technologist: Carmen Bryant Senior Technical Architect Exam Location: [facility]_ Indication: PVD RIGHT LEFT Brachial 152.00 mmHg Brachial 160.00 mmHg Pressure (mmHg) Waveform Pressure (mmHg) Waveform 124.00 COMMISSARY MANAGER 174.00 DPA 175.00 1.09 Ankle/Brachial Index 1.09 109.00 Pre-Exercise Toe Pressure 104.00 0.68 Pre-Exercise Toe/Brachial Index 0.65 FINDINGS Left COMMISSARY MANAGER >220 Resting ETHAN 1.09 bilaterally. Resting TBI of 0.68 on the right and 0.65 on the left CONCLUSIONS Normal resting ABIs bilaterally Slightly diminished resting TBI bilaterally, may suggest mild peripheral arterial disease possibly involving the distal vessels Dr Bib Blanc MD [facility] (Electronically Signed) Final Date: 28 June 2024 22:33 S
== END 2024-06-28 09:41 | disposition home or self-care (01) ==
LOC: RAD 09:43
PROVIDERS: PCP Internal Medicine; Visit Provider Family Medicine
DX: I73.9 Peripheral vascular disease, unspecified (principal)
CPT/HCPCS: 93922

== ENCOUNTER 2025-05-16 06:00 | Outpatient (CLI) | payer MEDICARE, OTHER, SELFPAY ==
--- NOTE | 2025-05-16 10:16 | XRR_ITS ---
PROCEDURE INFORMATION: Exam: XR Lumbosacral Spine Exam date and time: 05/16/2025 9:24 AM Age: 89 years old Clinical indication: Low back pain; Additional info: Chronic low back pain TECHNIQUE: Imaging protocol: Radiologic exam of the lumbosacral spine. Views: 2 or 3 views. COMPARISON: CR XR hip LT 2-3V wo/w pel* [id number] 05/16/2025 9:24 AM FINDINGS: Bones/joints: Demineralization of the visualized bones, limiting sensitivity for nondisplaced fractures. Moderate compression deformity of L1. Moderate anterolisthesis of L5 over S1. The lumbar spine demonstrates moderate degenerative changes at multiple levels. There are mild degenerative changes of the sacroiliac joints. Soft tissues: Unremarkable. Vasculature: The vasculature demonstrates diffuse moderate atherosclerotic calcification. XR/XR lumbar spine 2-3V* [id number] IMPRESSION: 1. Age indeterminate compression deformity of L1. 2. 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
--- NOTE | 2025-05-16 16:01 | XRR_ITS ---
PROCEDURE INFORMATION: Exam: XR Left Hip Exam date and time: 05/16/2025 9:24 AM Age: 89 years old Clinical indication: Hip pain; Left hip; Additional info: Lt hip pain TECHNIQUE: Imaging protocol: Radiologic exam of the left hip. Views: 2 or 3 views hip with pelvis when performed. COMPARISON: No relevant prior studies available. FINDINGS: Bones/joints: Demineralization of the visualized bones, limiting sensitivity for nondisplaced fractures. The pubic symphysis demonstrates mild degenerative changes. Mild degenerative disease of the left sacroiliac joint. Soft tissues: Unremarkable. XR/XR hip LT 2-3V wo/w pel* [id number] IMPRESSION: No acute fracture or dislocation.
== END 2025-05-16 06:01 | disposition home or self-care (01) ==
LOC: RADOUTREAD 15:55
PROVIDERS: PCP Internal Medicine; Visit Provider Family Medicine
DX: M54.50 Low back pain, unspecified (principal); M79.672 Pain in left foot; M19.90 Unspecified osteoarthritis, unspecified site; M46.1 Sacroiliitis, not elsewhere classified
CPT/HCPCS: 73502

== ENCOUNTER 2025-05-29 13:59 | Outpatient (CLI) | payer MEDICARE, OTHER, SELFPAY ==
--- NOTE | 2025-05-29 14:07 | XR_ITS ---
WS: [id number] DEXA (DUAL ENERGY X-RAY ABSORPTIOMETRY) Bone mineral density was performed using a [employer]bool[employer] machine. HISTORY: AGE RELATED OSTEOPOROSIS W/CURRENT PATHOLOGICAL FX COMPARISON: None available. Lumbar spine BMD (L1-L4): 0.903 g/cm2 T score: -2.3 Z score: -0.6 Total hip BMD: Left: 0.527 g/cm2. T score: -3.8 Z score: -1.5 Right: 0.459 g/cm2. T score: -4.4 Z score: -2.1 10 year probability of a major osteoporotic fracture is 63.8%. XR/XR DEXA axial skeleton* [id number] IMPRESSION: OSTEOPOROSIS based upon the WHO classification for females.
== END 2025-05-29 14:00 | disposition home or self-care (01) ==
LOC: RAD 14:04
PROVIDERS: PCP Family Medicine; Visit Provider Family Medicine
DX: Z13.820 Encounter for screening for osteoporosis (principal); M81.0 Age-related osteoporosis without current pathological fracture
CPT/HCPCS: 77080

== ENCOUNTER 2025-06-05 07:27 | Outpatient (CLI) | payer MEDICARE, OTHER, SELFPAY ==
--- NOTE | 2025-06-05 07:32 | CT_ITS ---
WS: [id number] CT LUMBAR SPINE, noncontrast. HISTORY: COMPRESSION FX OF L1 VERTEBRA TECHNIQUE: Contiguous 2.0 mm axial imaging are performed. Sagittal and coronal reformats are submitted and reviewed. All CT scans at [facility] use at least one of these dose optimization techniques: automated exposure control; mA and/or kV adjustment per patient size (includes targeted exams where dose is matched to clinical indication); or iterative reconstruction. IV contrast: None DLP: 373.38 mGy.cm COMPARISON: Radiograph 05/16/2025 Increase in the lumbar lordosis. Bones are diffusely osteopenic. Age- indeterminate compression fracture at L1. Mild biconcave L1 fracture. Retrolisthesis of the posterior superior endplate by 4.3 mm. No acute or displaced fracture line is identified. There is an additional fracture versus Schmorl's node involving the superior endplate of L5. No retrolisthesis of the L5 vertebral body. L4 anterolisthesis by 5.8 mm. L1-2: Mild disc bulging. Very shallow LEFT foraminal disc protrusion. No stenosis. Facet joint arthritis. L2-3: Mild disc bulging with ligamentum flavum and facet arthritis. L3-4: Mild disc bulging and facet arthritis. L4-5: Diffuse disc bulging with unroofing of the disc. Moderate facet arthritis encroaching upon the ventral thecal sac. Ligamentum flavum hypertrophy. Combination of findings causing mild to moderate central and bilateral subarticular recess stenosis. No significant foraminal stenosis. L5-S1: Mild disc bulging with facet joint arthritis encroaching on the thecal sac. Advanced calcified plaque in the aorta and mesenteric arteries. Heavily calcified iliac arteries. Sigmoid diverticular disease without acute diverticulitis. Prior cholecystectomy. Indeterminate bilateral renal masses. CT/CT lumbar spine wo con* [id number] IMPRESSION: 1. Age-indeterminate compression fracture at L1 by approximately 30%. 2. Retrolisthesis of the posterior superior endplate of L1 by 4.3 mm. No signi ficant stenosis from the retrolisthesis. 3. Fracture versus Schmorl's node superior endplate of L5. No retropulsion. 4. Mild to moderate central with bilateral subarticular recess stenosis at L4- 5 due to combination of facet joint arthropathy and anterolisthesis of L4. 5. Prior cholecystectomy. 6. Advanced atherosclerosis aorta, mesenteric arteries and iliac arteries. 7. Bilateral renal masses. Indeterminate by noncontrast CT. For further evalua tion ultrasound can be obtained.
== END 2025-06-05 07:28 | disposition home or self-care (01) ==
LOC: RAD 07:29
PROVIDERS: PCP Family Medicine; Visit Provider Family Medicine
DX: S32.010A Wedge compression fracture of first lumbar vertebra, initial encounter for closed fracture (principal); X58.XXXA Exposure to other specified factors, initial encounter; M43.16 Spondylolisthesis, lumbar region; M51.46 Schmorl's nodes, lumbar region; M48.061 Spinal stenosis, lumbar region without neurogenic claudication
CPT/HCPCS: 72131